=== PATIENT | female | born 1960 | race Caucasian/White ===

== ENCOUNTER → 2018-08-14 | Day surgery (SDC) | payer BC ==
[~2018-08-14] MED LIST: ASPIR 8181 MG PO; BIOTIN2500 MCG PO; CALCIUM PO; CO Q10100 MG PO; DICYCLOMINE HCL20 MG PO; EPHEDRINE SULFATE INJ 50 MG/10 ML SYR ONE; FENTANYL CITRATE/PF 100MCG/2 ML INJ ONE; FISH OIL PO; HYOSCYAMINE SULFATE 0.5 MG/ML INJ ONE; LISINOPRIL-HCT1 EAC2 PO; LISINOPRIL10 MG PO; MELOXICAM7.5 MG PO; METOPROLOL TART25 MG PO; MIDAZOLAM HCL 2 MG/2 ML VIAL ONE; MULTIVITAMINS1 EAC7 PO; NEXIUM40 MG PO; PHENYLEPHRINE HCL 1% 10 MG/ML VIAL ONE; PROPOFOL IV EMULSION 10 MG/ML 50 ML VIAL ONE; SINGULAIR10 MG PO; VIT D3 PO; VITAMIN B-12 PO; VITAMIN C PO
[2018-08-14 11:30] VITALS: BP 127/70
--- NOTE | 2018-08-14 12:00 | Operative Report ---
DATE OF PROCEDURE: August 14, 2018 REFERRING PHYSICIAN: Dr. Mauro Espinoza PROCEDURE PERFORMED: Colonoscopy and polypectomy. INDICATIONS FOR COLONOSCOPY: Colorectal cancer screening. MEDICATION: Patient was done under MAC. Please see anesthesiologist's note. PROCEDURE: With the patient in the left lateral decubitus position, the flexible fiberoptic Olympus colonoscope was inserted into the rectum with ease and advanced all the way to the cecum. It was then withdrawn slowly. Mucosa overlying the cecum, ascending colon, and transverse colon appeared to be within normal limits. Three polyps were hot biopsied from the descending colon. Diverticular disease was noted in the sigmoid colon. Three polyps were hot biopsied from the sigmoid colon. Two polyps were hot biopsied from the rectum. Scope was then retroflexed into the distal rectum, and small internal hemorrhoids were noted, none of which was actively bleeding. The scope was then straightened out. It was subsequently withdrawn. Patient tolerated the procedure well. IMPRESSION 1. Descending colon polyps times 3, hot biopsied. 2. Diverticulosis. 3. Sigmoid colon polyps times 3, hot biopsied. 4. Rectal polyps times 2, hot biopsied. 5. Internal hemorrhoids, none actively bleeding. 6. A total of 8 polyps were removed. PLAN: Follow up histology. Initiate high-fiber, low-fat diet. Initiate high-fiber supplement. Patient will need a followup colonoscopy in 3 years. Job#: [id number] cc:MAURO ESPINOZA DO
--- OUTSIDE RECORDS SUMMARY | 2018-08-25 11:07 | XMS REPORT | Clinical Summary ---
Author Author [facility] Organization [facility] Address Unknown Phone Unavailable Care Team Providers Care Radiochemical Technician Name Role Phone Sunny Rolle MD PCP Allergies Active Allergy Reactions Severity Noted Date Comments Codeine Itching Medium 01/29/2016 Current Medications Prescription Sig. Disp. Refills Start End Date Status Date esomeprazole (NexIUM) 40 Take 40 mg by mouth Active MG capsule daily. montelukast (SINGULAIR) Take 10 mg by mouth Active 10 mg tablet daily. sucralfate (CARAFATE) 1 Take 1 g by mouth daily. Active gram tablet MULTIVITAMIN (MULTI-DAY Take 1 tablet by mouth Active ORAL) daily. aspirin 81 mg chewable Chew 81 mg daily. Active tablet DOCOSAHEXANOIC ACID/EPA Take 1,200 mg by mouth Active (FISH OIL ORAL) daily. CYANOCOBALAMIN, VITAMIN Take 1 tablet by mouth Active B-12, (VITAMIN B-12 ORAL) daily. metoprolol tartrate Take 25 mg by mouth 2 Active (LOPRESSOR) 25 mg tablet (two) times a day. dicyclomine (BENTYL) 20 Take 20 mg by mouth 3 Active mg tablet (three) times a day as needed (Abdominal cramping). ascorbic acid, vitamin C, Take 1,000 mg by mouth Active (vitamin C) 1000 MG daily. tablet ubidecarenone (CO Q-10 Take 1 tablet by mouth Active ORAL) daily. cholecalciferol, vitamin Take 500 Int'l Units by Active D3, (VITAMIN D3 ORAL) mouth daily. atorvastatin (LIPITOR) 20 Take 1 tablet (20 mg 30 tablet 11 03/25/20 03/25/20 Active MG tablet total) by mouth nightly. 18 19 Default OP ins lisinopril Take 1 tablet (40 mg 30 tablet 0 03/25/20 Active (PRINIVIL,ZESTRIL) 40 mg total) by mouth daily. 18 tablet aspirin-calcium carbonate Take by mouth. Active 81 mg-300 mg calcium(777 mg) tablet methylPREDNISolone follow package directions 21 tablet 0 07/30/20 09/08/20 Active (MEDROL DOSEPAK) 4 mg 18 18 tablet meloxicam (MOBIC) 15 mg Take 1 tablet (15 mg 90 tablet 0 07/30/20 12/09/19 Active tablet total) by mouth daily for 18 19 132 days. lisinopril-hydrochlorothi Take 1 tablet by mouth. 08/18/20 Discontin azide 17 ued (PRINZIDE,ZESTORETIC) 20-12.5 mg per tablet metoprolol succinate XL Take 25 mg by mouth 2 08/18/20 Discontin (TOPROL-XL) 25 mg 24 hr (two) times a day. 17 ued tablet lisinopril Take 5 mg by mouth daily. 03/25/20 Discontin (PRINIVIL,ZESTRIL) 5 mg 18 ued tablet traMADol (ULTRAM) 50 mg Take 50 mg by mouth daily 08/19/20 Discontin tablet as needed for moderate 17 ued pain. ASCORBATE CALCIUM Take 1 tablet by mouth 03/24/20 Discontin (VITAMIN C ORAL) daily. 18 ued lifitegrast (XIIDRA) 5 % Administer 1 drop to both 03/24/20 Discontin dropperette eyes daily. 18 ued tamsulosin (FLOMAX) 0.4 Take 0.4 mg by mouth 08/15/20 08/18/20 Discontin mg capsule,extended daily. For 7 days 17 17 ued release 24hr nitrofurantoin, Take 100 mg by mouth 2 03/24/20 Discontin macrocrystal-monohydrate, (two) times a day. 18 ued (MACROBID) 100 MG capsule traMADol (ULTRAM) 50 mg Take 1 tablet (50 mg 45 tablet 0 08/19/20 09/03/20 tablet total) by mouth every 8 17 17 (eight) hours as needed for moderate pain for up to 15 days. traMADol (ULTRAM) 50 mg Take 1 tablet (50 mg 10 tablet 0 01/02/20 01/05/20 tablet total) by mouth every 6 18 18 (six) hours as needed for moderate pain for up to 10 doses. cinnamon bark 500 mg Take 500 mg by mouth 03/25/20 Discontin capsule daily. 18 ued ondansetron ODT Take 1 tablet (4 mg 14 tablet 0 03/25/20 04/24/20 (ZOFRAN-ODT) 4 MG total) by mouth every 8 18 18 disintegrating tablet (eight) hours as needed for nausea or vomiting for up to 30 days. 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 03/26/2018 Telephone Orthopedic Surgery Samra Kaur MA 03/25/2018 Procedure Pass Procedural Cardiology 03/25/2018 Surgery Procedural Cardiology Jaydon Alfaro MD Cv left heart cath w lv gram cors [01234 (CPT)] 03/24/2018 Emergency General Internal Medicine Devang Lincoln III, Chest pain, rule out - MD acute myocardial 03/25/2018 Nura Rosas MD infarction (Primary Dx) 01/28/2018 Office Visit Orthopedic Surgery Michael Sandoval Dislocation of right hip, MD Ethan initial encounter (Primary Dx); Dislocation of hip joint prosthesis, initial encounter 01/22/2018 Orders Only Orthopedic Surgery Samra Kaur MA 01/02/2018 Emergency Emergency Medicine Mane Schmidt Hip dislocation, right, MD Coleen initial encounter (Primary Dx) 08/27/2017 Office Visit Orthopedic Surgery Petey Vergara MD 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 (Primary Dx) 08/19/2017 Telephone Orthopedic Surgery Leyla Ibrahim 08/18/2017 [facility] General Internal Medicine Thao Hernandez MD Hip dislocation, right, - Encounter Hans Penn MD initial encounter 08/19/2017 (Primary Dx) 08/18/2017 Anesthesia General Surgery 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, 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 08/18/2017 Procedure Pass General Surgery 08/18/2017 Surgery General Surgery Hans Penn MD Closed Treatment, Dislocation, Hip after 08/13/2017 Immunizations Name Dates Previously Given Next Due FLUCELVAX QUAD PF (0.5mL 08/19/2017 syringe) Pneumococcal Conjugate 08/19/2017 13-Valent Family History Medical History Relation Name Comments Heart disease Father Kidney disease Father Diabetes Maternal Coty Grandmother Ajay Cancer Mother Daphney Esquivel pancreatic cancer at age 39 Relation Name Status Comments Father Maternal Grandmother Coty Moss Mother Daphney Esquivel Social History Tobacco Use Types Packs/Day Years Used Date Current Every Day Smoker Cigarettes 0.5 4 Smokeless Tobacco: Never Used Tobacco Cessation: Counseling Given: No Alcohol Use Drinks/Week oz/Week Comments Yes occasional Sex Assigned at Date Recorded Not on file Last Filed Vital Signs Vital Sign Reading Time Taken Blood Pressure 169/90 03/25/2018 1:45 PM CDT Pulse 69 03/25/2018 1:45 PM CDT Temperature 36.2 C (97.2 F) 03/25/2018 12:43 PM CDT Respiratory Rate 18 03/25/2018 1:45 PM CDT Oxygen Saturation 96% 03/25/2018 1:45 PM CDT Inhaled Oxygen - - Concentration Weight 74.8 kg (165 lb) 07/30/2018 1:21 PM CDT Height 157.5 cm (5' 2") 07/30/2018 1:21 PM CDT Body Mass Index 30.18 07/30/2018 1:21 PM CDT Plan of Treatment Health Maintenance Due Date Last Done Comments DIABETIC FOOT EXAM 1970 DIABETIC RETINAL EYE EXAM 1970 CERVICAL CANCER SCREENING 1981 BREAST CANCER SCREENING 2010 COLON CANCER SCREENING 2010 SHINGRIX VACCINE (#1) 2010 INFLUENZA VACCINE 06/10/2018 08/19/2017 Procedures Procedure Name Priority Date/Time Associated Diagnosis Comments XR LUMBAR SPINE COMPLETE Routine 07/30/2018 Pain, radicular, lumbar Results for this 4+ VW 1:52 PM CDT procedure are in the results section. XR TIBIA FIBULA 2 VW LEFT Routine 07/30/2018 Left leg pain Results for this 1:52 PM CDT procedure are in the results section. CV LEFT HEART CATH LV Routine 03/25/2018 Results for this GRAM WITH CORS 10:31 AM CDT procedure are in the results section. ZZESTIMATED GFR Routine 03/25/2018 Results for this 5:05 AM CDT procedure are in the results section. MAGNESIUM LEVEL Routine 03/25/2018 Results for this 5:05 AM CDT procedure are in the results section. BASIC METABOLIC PANEL Routine 03/25/2018 Results for this 5:05 AM CDT procedure are in the results section. HC COMPLETE BLD COUNT Routine 03/25/2018 Results for this W/AUTO DIFF 5:05 AM CDT procedure are in the results section. TROPONIN Timed 03/24/2018 Results for this 9:01 PM CDT procedure are in the results section. ECHOCARDIOGRAM 2D Routine 03/24/2018 Results for this COMPLETE W MMODE SPECTRAL 6:41 PM CDT procedure are in the COLOR DOPPLER (17413) results section. TROPONIN Routine 03/24/2018 Results for this 6:05 PM CDT procedure are in the results section. TROPONIN Routine 03/24/2018 Results for this 5:00 PM CDT procedure are in the results section. T4, FREE Routine 03/24/2018 Results for this 5:00 PM CDT procedure are in the results section. THYROID STIMULATING Routine 03/24/2018 Results for this HORMONE 5:00 PM CDT procedure are in the results section. HEMOGLOBIN A1C Routine 03/24/2018 Results for this 5:00 PM CDT procedure are in the results section. LIPID PANEL Routine 03/24/2018 Results for this 5:00 PM CDT procedure are in the results section. D-DIMER Routine 03/24/2018 Results for this 5:00 PM CDT procedure are in the results section. XR CHEST 2 VW STAT 03/24/2018 Results for this 2:28 PM CDT procedure are in the results section. ECG ED PRELIMINARY Routine 03/24/2018 Results for this INTERPRETATION 2:03 PM CDT procedure are in the results section. ZZESTIMATED GFR STAT 03/24/2018 Results for this 2:00 PM CDT procedure are in the results section. LIPASE LEVEL STAT 03/24/2018 Results for this 2:00 PM CDT procedure are in the results section. B NATRIURETIC PEPTIDE STAT 03/24/2018 Results for this 2:00 PM CDT procedure are in the results section. TROPONIN STAT 03/24/2018 Results for this 2:00 PM CDT procedure are in the results section. CREATINE KINASE, TOTAL STAT 03/24/2018 Results for this (CPK) 2:00 PM CDT procedure are in the results section. COMPREHENSIVE METABOLIC STAT 03/24/2018 Results for this PANEL 2:00 PM CDT procedure are in the results section. PARTIAL THROMBOPLASTIN STAT 03/24/2018 Results for this TIME (PTT) 2:00 PM CDT procedure are in the results section. PROTHROMBIN TIME WITH INR STAT 03/24/2018 Results for this 2:00 PM CDT procedure are in the results section. HC COMPLETE BLD COUNT STAT 03/24/2018 Results for this W/AUTO DIFF 2:00 PM CDT procedure are in the results section. ECG 12-LEAD STAT 03/24/2018 Results for this 1:36 PM CDT procedure are in the results section. ORTHOPEDIC INJURY Routine 01/02/2018 Hip dislocation, right, Results for this TREATMENT 6:59 PM AIRLINE RESERVATIONIST initial encounter procedure are in the results section. XR PELVIS 1 OR 2 VW STAT 01/02/2018 Results for this 5:54 PM AIRLINE RESERVATIONIST procedure are in the results section. XR HIP 2-3 VIEWS RIGHT STAT 01/02/2018 Results for this 2:26 PM AIRLINE RESERVATIONIST procedure are in the results section. XR KNEE 1 OR 2 VW RIGHT STAT 01/02/2018 Results for this 2:25 PM AIRLINE RESERVATIONIST procedure are in the results section. ECG 12-LEAD STAT 01/02/2018 Results for this 1:49 PM AIRLINE RESERVATIONIST procedure are in the results section. ZZESTIMATED GFR STAT 01/02/2018 Results for this 1:45 PM AIRLINE RESERVATIONIST procedure are in the results section. PARTIAL THROMBOPLASTIN STAT 01/02/2018 Results for this TIME (PTT) 1:45 PM AIRLINE RESERVATIONIST procedure are in the results section. PROTHROMBIN TIME WITH INR STAT 01/02/2018 Results for this 1:45 PM AIRLINE RESERVATIONIST procedure are in the results section. COMPREHENSIVE METABOLIC STAT 01/02/2018 Results for this PANEL 1:45 PM AIRLINE RESERVATIONIST procedure are in the results section. HC COMPLETE BLD COUNT STAT 01/02/2018 Results for this W/AUTO DIFF 1:45 PM AIRLINE RESERVATIONIST procedure are in the results section. SC MODERATE SEDATJ SAME Routine 01/02/2018 Results for this PHYS/QHP 5/>YRS INIT 30 1:37 PM AIRLINE RESERVATIONIST procedure are in the MIN results section. XR PELVIS 1 OR 2 VW Routine 08/27/2017 S/P closed reduction of Results for this 10:29 AM CDT dislocated total hip procedure are in the prosthesis results section. SC MODERATE SEDATJ SAME Routine 08/19/2017 Results for this PHYS/QHP 5/>YRS INIT 30 7:41 PM CDT procedure are in the MIN results section. POC GLUCOSE Routine 08/18/2017 Results for this 5:59 PM CDT procedure are in the results section. OR FL > 1 HOUR Routine 08/18/2017 Results for this 5:58 PM CDT procedure are in the results section. ECG 12-LEAD STAT 08/18/2017 Results for this 4:57 PM CDT procedure are in the results section. POC GLUCOSE Routine 08/18/2017 Results for this 4:47 PM CDT procedure are in the results section. ZZESTIMATED GFR STAT 08/18/2017 Results for this 4:38 PM CDT procedure are in the results section. PROTHROMBIN TIME WITH INR STAT 08/18/2017 Results for this 4:38 PM CDT procedure are in the results section. PARTIAL THROMBOPLASTIN STAT 08/18/2017 Results for this TIME (PTT) 4:38 PM CDT procedure are in the results section. TYPE AND SCREEN STAT 08/18/2017 Results for this 4:38 PM CDT procedure are in the results section. BASIC METABOLIC PANEL STAT 08/18/2017 Results for this 4:38 PM CDT procedure are in the results section. HC COMPLETE BLD COUNT STAT 08/18/2017 Results for this W/AUTO DIFF 4:38 PM CDT procedure are in the results section. ORTHOPEDIC INJURY Routine 08/18/2017 Results for this TREATMENT 12:17 PM CDT procedure are in the results section. SC MODERATE SEDATJ SAME Routine 08/18/2017 Results for this PHYS/QHP 5/>YRS INIT 30 12:16 PM CDT procedure are in the MIN results section. XR HIP 2-3 VIEWS RIGHT STAT 08/18/2017 Results for this 9:30 AM CDT procedure are in the results section. after 08/13/2017 Results * XR Lumbar Spine Complete 4+ Vw (07/30/2018 1:52 PM) Narrative Performed At [facility] 5 view l-spine reveals diffuse mild-moderate age related degenerative changes, most notably L5-S1 Performing Organization Address City/State/Zipcode Phone Number [employer] [address] [place] [address] * XR Tibia Fibula 2 Vw Left (07/30/2018 1:52 PM) Narrative Performed At [facility] 2 view tibia reveals no evidence of fracture or dislocation Performing Organization Address [facility] Phone Number [facility] [address] [place] [address] * Cv calibration laboratory technician procedure (03/25/2018 10:31 AM) Narrative Performed At [facility] Normal coronaries angiographically Normal Left ventricular end diastolic Pressures Recommend stop smoking, life style and dietary changes Performing Organization Address [facility] Phone Number [facility] [address] [place] [address] * Estimated GFR (03/25/2018 5:05 AM) Only the most recent of 4 results within the time period is included. GFR Non Af Amer >90 mL/min/1.73 m2 [facility] DEPARTMENT OF PATHOLOGY AND GENOMIC MEDICINE GFR Af Amer >90 mL/min/1.73 m2 [facility] DEPARTMENT OF Comment: PATHOLOGY AND Chronic kidney disease: <60 GENOMIC MEDICINE mL/min/1.73m2 Kidney failure: <15 mL/min/1.73m2 The estimated GFR is calculated from the IDMS-traceable Modification of Diet in Renal Disease Equation. The accuracy of the calculation is poor when the creatinine is normal. Calculated values >90 mL/min/1.73m2 are not reported. This equation has not been validated in children (<18 years), women, the elderly (>70 years), or ethnic groups other than Caucasians and Americans. Specimen Plasma specimen Performing Organization Address [facility] Phone Number [address] [address] PATHOLOGY AND GENOMIC MEDICINE * CBC with platelet and differential (03/25/2018 5:05 AM) Only the most recent of 4 results within the time period is included. WBC 5.1 4.5 - 11.0 k/uL [facility] DEPARTMENT OF PATHOLOGY AND GENOMIC MEDICINE RBC 4.39 4.20 - 5.50 m/uL [facility] DEPARTMENT OF PATHOLOGY AND GENOMIC MEDICINE HGB 13.2 12.0 - 16.0 g/dL [facility] DEPARTMENT OF PATHOLOGY AND GENOMIC MEDICINE HCT 39.4 37.0 - 47.0 % [facility] DEPARTMENT OF PATHOLOGY AND GENOMIC MEDICINE MCV 89.7 82.0 - 100.0 fL [facility] DEPARTMENT OF PATHOLOGY AND GENOMIC MEDICINE MCH 30.1 27.0 - 34.0 pg [facility] DEPARTMENT OF PATHOLOGY AND GENOMIC MEDICINE MCHC 33.5 31.0 - 37.0 g/dL [facility] DEPARTMENT OF PATHOLOGY AND GENOMIC MEDICINE RDW - SD 42.6 37.0 - 55.0 fL [facility] DEPARTMENT OF PATHOLOGY AND GENOMIC MEDICINE MPV 9.8 6.9 - 11.0 fL [facility] DEPARTMENT OF PATHOLOGY AND GENOMIC MEDICINE Platelet count 171 150 - 400 K/uL [facility] DEPARTMENT OF PATHOLOGY AND GENOMIC MEDICINE Nucleated RBC 0.00 /100 WBC [facility] DEPARTMENT OF PATHOLOGY AND GENOMIC MEDICINE Neutrophils 52.9 39.0 - 69.0 % [facility] DEPARTMENT OF PATHOLOGY AND GENOMIC MEDICINE Lymphocytes 32.6 25.0 - 45.0 % [facility] DEPARTMENT OF PATHOLOGY AND GENOMIC MEDICINE Monocytes 9.6 0.0 - 10.0 % [facility] DEPARTMENT OF PATHOLOGY AND GENOMIC MEDICINE Eosinophils 3.9 0.0 - 5.0 % [facility] DEPARTMENT OF PATHOLOGY AND GENOMIC MEDICINE Basophils 0.8 0.0 - 1.0 % [facility] OF PATHOLOGY AND GENOMIC MEDICINE Immature granulocytes 0.2 0.0 - 1.0 % [facility] DEPARTMENT OF PATHOLOGY AND GENOMIC MEDICINE Specimen Blood Performing Organization Address City/[facility]/[place] [address] PATHOLOGY [facility] * Magnesium level (03/25/2018 5:05 AM) Magnesium 1.9 1.6 - 2.6 mg/dL [facility] DEPARTMENT OF PATHOLOGY AND GENOMIC MEDICINE Specimen Plasma specimen Performing Organization Address City/[facility]/Zipcode Phone Number [address] * Basic metabolic panel (03/25/2018 5:05 AM) Only the most recent of 2 results within the time period is included. Sodium 142 135 - 148 mEq/L [facility] DEPARTMENT OF PATHOLOGY AND GENOMIC MEDICINE Potassium 3.8 3.5 - 5.0 mEq/L [facility] DEPARTMENT OF PATHOLOGY AND GENOMIC MEDICINE Chloride 104 98 - 112 mEq/L [facility] DEPARTMENT OF PATHOLOGY AND GENOMIC MEDICINE CO2 23 (L) 24 - 31 mEq/L [facility] DEPARTMENT OF PATHOLOGY AND GENOMIC MEDICINE Anion gap 15@ANIO 7 - 15 mEq/L [facility] DEPARTMENT OF PATHOLOGY AND GENOMIC MEDICINE BUN 13 6 - 20 mg/dL [facility] DEPARTMENT OF PATHOLOGY AND GENOMIC MEDICINE Creatinine 0.6 0.5 - 0.9 mg/dL [facility] DEPARTMENT OF PATHOLOGY AND GENOMIC MEDICINE Glucose 108 (H) 65 - 99 mg/dL [facility] DEPARTMENT OF PATHOLOGY AND GENOMIC MEDICINE Calcium 8.8 8.3 - 10.2 mg/dL [facility] DEPARTMENT OF PATHOLOGY AND GENOMIC MEDICINE Specimen Plasma specimen Performing Organization Address City/[facility]/[place] [address] PATHOLOGY AND [employer] MEDICINE * Troponin (03/24/2018 9:01 PM) Only the most recent of 4 results within the time period is included. Troponin <0.30 0.00 - 0.30 ng/mL [facility] DEPARTMENT OF Comment: PATHOLOGY AND 0.11 - 1.49 GENOMIC MEDICINE ng/mlMay indicate increased risk of acute coronary syndrome. >=1.5 ng/ml Consistent with acute myocardial infarction. The diagnostic value of a single normal or non-diagnostic result is questionable.Serial samples at 2-6 hour intervals are required to rule out acute myocardial injury. Specimen Plasma specimen Performing Organization Address City/[facility] Phone Number [facility] [phone] [place] [address] PATHOLOGY AND [employer] * Echocardiogram complete w contrast and 3D if needed (03/24/2018 6:41 PM) Ao Root Diameter 3.02 cm [facility] AoV Area, Vmax 3.10 cm2 [facility] AoV Area, VTI 3.05 cm2 [facility] AoV Mean PG 3.99 mmHg [facility] AoV Peak PG 8.32 mmHg [facility] AoV Vmax 1.44 m/s [facility] AoV VTI 0.28 m [facility] BSA Amaro 0.00 m2 [facility] BSA 0.00 m2 [facility] IVS,d 0.77 0.6 - 1.2 cm [facility] IVS/LVPW,2D 0.62 [facility] Left Atrium Dimension 3.08 cm [facility] Anterior LV,d 5.09 cm [facility] LV EF,2D 84.70 % [facility] LV,s 2.72 cm [facility] LVOT area 3.20 cm2 [facility] LVOT Diam,S 2.02 cm [facility] LVOT Vmax 1.40 m/s [facility] LVOT VTI 0.27 m [facility] LVPWD,d 1.24 cm [facility] PV Pk Grad 4.44 mmHg [facility] PV VMAX 1.05 m/s [facility] RVSP (TR) 21.70 mmHg [facility] TR Vpeak 1.71 mm/s [facility] MV E A ratio 0.99 mmHg [facility] TR pk grad 11.70 mmHg [facility] E wave decelartion time 210.98 msec [facility] MV Peak A Bradley 0.91 m/s [facility] MV valve area p 1/2 3.60 cm2 [facility] method MV Peak E Bradley 0.89 m/s [facility] MV stenosis pressure 1/2 61.18 ms [facility] time AV LVOT peak gradient 7.87 mmHg [facility] Ascending aorta 3.31 cm [facility] RVSP 21.70 mmHg [facility] Ao Root Diameter 3.02 cm [facility] LV SYS VOL 27.58 ml [facility] LV HIDALGO VOL 123.28 ml [facility] LV SV Teich 2D 95.71 ml [facility] LV Vol s Teich PSAX 27.58 ml [facility] BSA Haycock 0.00 m2 [facility] AoV Vmn 0.93 [facility] LV FS Teich 2D 46.52 [facility] MV AE ratio 1.01 [facility] LA Ao Ratio Mmode 0.94 [facility] LV FS Cube 2D 46.52 [facility] LVOT Vmn 0.90 [facility] Pt Size 0.00 [facility] Pt Wt 0.00 [facility] Ao root annulus 3.40 cm [facility] Aov area Vmn 3.10 cm2 [facility] LVOT mean grad 3.81 mmHg [facility] MAX Pred HR 162.52 [facility] 85 of MPHR 138.14 [facility] Calc MPHR 162.52 bpm [facility] LV SV Cube 2D 111.74 ml [facility] LV vol d cube 2D 131.92 ml [facility] LV vol s cube 2D 20.18 ml [facility] MV Decel slope 4.24 m/s2 [facility] Pred Exer Dur R1 8.18 [facility] Pred METS R1 7.23 [facility] Velocity Ratio (V1/V2) 0.97 m/s [facility] EF 77.63 % [facility] E/A ratio 0.98 [facility] Narrative Performed At [facility] The left ventricle chamber size is normal. Left Ventricular ejection fraction is 60 - 65%. No pericardial effusion Right Ventricle: Normal right ventricular size, wall thickness and global function. No evidence of pulmonary hypertension present. Diastology: Spectral Doppler shows normal pattern of LV diastolic filling. Normal LV filling pressure. No significant Valvular Heart disease Performing Organization Address [facility] Phone Number [facility] [address] [place] [address] * D-dimer (03/24/2018 5:00 PM) D-dimer 0.36 0.00 - 0.40 ug/mL [facility] DEPARTMENT OF Comment: PATHOLOGY AND Units are ug/ml [employer] MEDICINE Equivalent Unit. When combined with low clinical probability, D-dimer results of less than 0.5 ug/ml FEU have a good negativepredictive value in excluding PE or DVT. For D-dimer results greater than 0.5ug/ml FEU further testing is indicated if PE or DVT is suspectedclinically. Elevated D-dimer results have been reported in DVT, PE, and DIC cases and may indicate the presence of a clot. D-dimer results may be elevated due to old age, , inflammatory diseases, trauma, post-operative states, sepsis, and malignancies. Specimen Blood Performing Organization Address [facility] [place] [address] PATHOLOGY AND [employer] MEDICINE * Thyroid stimulating hormone (03/24/2018 5:00 PM) TSH 1.27 0.27 - 4.20 uIU/mL [facility] DEPARTMENT OF PATHOLOGY AND GENOMIC MEDICINE Specimen Plasma specimen Performing Organization Address [facility] [place] [address] PATHOLOGY AND [employer] MEDICINE * T4, free (03/24/2018 5:00 PM) T4, free 1.0 0.9 - 1.7 ng/dL [facility] DEPARTMENT OF PATHOLOGY AND GENOMIC MEDICINE Specimen Plasma specimen Performing Organization Address [facility] [place] [address] PATHOLOGY AND [employer] MEDICINE * Hemoglobin A1c (03/24/2018 5:00 PM) Hemoglobin A1C 5.5 4.0 - 6.0 % [facility] DEPARTMENT OF Comment: PATHOLOGY AND GENOMIC MEDICINE Less than 6% - Goal of therapy for Type II Diabetes Less than 7%-Goal of therapy for Type I Diabetes Less than 8%-Accepta ble control for Type I or Type II Diabetes Greater than 8%-Unacceptabl e control; action indicated. (ADA94) Specimen Blood Performing Organization Address City/State/Zipcode Phone Number [place] [phone] [place] [address] PATHOLOGY AND GENOMIC MEDICINE * Lipid panel (03/24/2018 5:00 PM) Cholesterol 209 (H) 0 - 199 mg/dL [facility] DEPARTMENT OF PATHOLOGY AND GENOMIC MEDICINE Triglycerides 227 (H) 0 - 149 mg/dL [facility] DEPARTMENT OF PATHOLOGY AND GENOMIC MEDICINE HDL cholesterol 51 40 - 99,999 mg/dL [facility] DEPARTMENT OF PATHOLOGY AND GENOMIC MEDICINE LDL cholesterol 115 (H) 0 - 99 mg/dL [facility] DEPARTMENT OF PATHOLOGY AND GENOMIC MEDICINE Lipid panel See below [facility] DEPARTMENT OF interpretation Comment: PATHOLOGY AND Total Cholesterol GENOMIC MEDICINE (mg/dL) <200 Desirable 200-239Borderline -high >=240High Triglycerides (mg/dL) <150 Normal 150-199Borderline -high 200-499High >=500Very high HDL Cholesterol (mg/dL) <40Low (male) <50Low (female) LDL Cholesterol (mg/dL) <100 Optimal 100-129Near or above optimal 130-159Borderline -high 160-189High >=190Very high Risk Catergories that modify LDL goals. Risk Catergories LDL goal (mg/dL) CHD and CHD risk equivalent<100 (10-year risk >20%) Multiple (2+) risk factors <130 (10-year risk=<20%) 0-1 risk factors <160 (<10-year risk) Defining levels of lipids in metabolic syndrome Triglycerides >=150 mg/dL HDL Cholesterol Men <40 mg/dL Women <50 mg/dL Non-HDL cholesterol is a second target for therapy in persons with high triglycerides (>=200 mg/dL) Specimen Plasma specimen Performing Organization Address [facility] [place] [address] PATHOLOGY AND GENOMIC MEDICINE * XR Chest 2 Vw (03/24/2018 2:28 PM) Narrative Performed At EXAMINATION:XR CHEST 2 VW [facility] CLINICAL HISTORY: Chest pain COMPARISON:None IMPRESSION: No active disease in the chest. Lungs are clear. Cardiomediastinal silhouette is within normal limits. No effusion or pneumothorax noted. Visualized osseous structures are intact. [facility]-[id number] Procedure Note Interface, Radiology Results Incoming - 03/24/2018 2:33 PM CDT EXAMINATION: XR CHEST 2 VW CLINICAL HISTORY: Chest pain COMPARISON: None IMPRESSION: No active disease in the chest. Lungs are clear. Cardiomediastinal silhouette is within normal limits. No effusion or pneumothorax noted. Visualized osseous structures are intact. [facility]-[id number] Performing Organization Address [facility] Phone Number [facility] [address] [place] [address] * ECG ED Preliminary Interpretation - NOT AN ORDER (03/24/2018 2:03 PM) Narrative Performed At Devang Lincoln III, MD 03/24/2018 11:46 PM ECG ED Preliminary Interpretation - Not an Order Performed by: CAROLE QUINN Authorized by: CAROLE QUINN ECG reviewed by ED Physician in the absence of a veterinarian epidemiologist: yes Previous ECG: Previous ECG:Unavailable Interpretation: Interpretation: normal Rate: ECG rate:54 ECG rate assessment: bradycardic Rhythm: Rhythm: sinus bradycardia ST segments: ST segments:Normal * Partial thromboplastin time, activated (03/24/2018 2:00 PM) Only the most recent of 3 results within the time period is included. PTT 22.9 (L) 23.0 - 36.0 sec [facility] DEPARTMENT OF Comment: PATHOLOGY AND PTT therapeutic range for GENOMIC MEDICINE unfractionated heparin is 61.0-112.0 seconds which corresponds to Anti-Xa 0.3-0.7 U/ml. Specimen Blood Performing Organization Address [facility] [place] [address] PATHOLOGY AND GENOMIC MEDICINE * Prothrombin time with INR (03/24/2018 2:00 PM) Only the most recent of 3 results within the time period is included. Prothrombin time 12.8 12.0 - 15.0 sec [facility] DEPARTMENT OF PATHOLOGY AND GENOMIC MEDICINE INR 1.0 [facility] DEPARTMENT OF Comment: PATHOLOGY AND The International Normalized GENOMIC MEDICINE Ratio (INR) is a therapeutic monitoring tool for patients who are stable on oral anticoagulant therapy. An INR of 2.0-3.0 is suggested for deep vein thrombosis/pulmonary embolism. Specimen Blood Performing Organization Address City/[facility] [place] [address] PATHOLOGY AND [facility] * B natriuretic peptide (03/24/2018 2:00 PM) BNP 102 (H) 0 - 100 pg/mL [facility] DEPARTMENT OF PATHOLOGY AND [employer] MEDICINE Specimen Blood Performing Organization Address [facility] [place] [address] PATHOLOGY AND [facility] * Lipase level (03/24/2018 2:00 PM) Lipase 46 13 - 60 U/L [facility] DEPARTMENT OF PATHOLOGY AND [employer] MEDICINE Specimen Plasma specimen Performing Organization Address [facility] [place] [address] PATHOLOGY AND [facility] * Creatine kinase, total (CPK) (03/24/2018 2:00 PM) Creatine kinase 64 26 - 192 U/L [facility] DEPARTMENT OF PATHOLOGY AND [employer] MEDICINE Specimen Plasma specimen Performing Organization Address [facility] [place] [address] PATHOLOGY AND [facility] * Comprehensive metabolic panel (03/24/2018 2:00 PM) Only the most recent of 2 results within the time period is included. Sodium 144 135 - 148 mEq/L [facility] DEPARTMENT OF PATHOLOGY AND GENOMIC MEDICINE Potassium 4.4 3.5 - 5.0 mEq/L [facility] DEPARTMENT OF PATHOLOGY AND GENOMIC MEDICINE Chloride 102 98 - 112 mEq/L [facility] DEPARTMENT OF PATHOLOGY AND GENOMIC MEDICINE CO2 28 24 - 31 mEq/L [facility] DEPARTMENT OF PATHOLOGY AND GENOMIC MEDICINE Anion gap 14@ANIO 7 - 15 mEq/L [facility] DEPARTMENT OF PATHOLOGY AND GENOMIC MEDICINE BUN 13 6 - 20 mg/dL [facility] DEPARTMENT OF PATHOLOGY AND GENOMIC MEDICINE Creatinine 0.7 0.5 - 0.9 mg/dL [facility] DEPARTMENT OF PATHOLOGY AND GENOMIC MEDICINE Glucose 130 (H) 65 - 99 mg/dL [facility] DEPARTMENT OF PATHOLOGY AND GENOMIC MEDICINE Calcium 9.8 8.3 - 10.2 mg/dL [facility] DEPARTMENT OF PATHOLOGY AND GENOMIC MEDICINE Protein 7.3 6.3 - 8.3 g/dL [facility] DEPARTMENT OF PATHOLOGY AND GENOMIC MEDICINE Albumin 4.7 3.5 - 5.0 g/dL [facility] DEPARTMENT OF PATHOLOGY AND GENOMIC MEDICINE A/G ratio 1.8 0.7 - 3.8 [facility] DEPARTMENT OF PATHOLOGY AND GENOMIC MEDICINE Alkaline phosphatase 61 35 - 104 U/L [facility] DEPARTMENT OF PATHOLOGY AND GENOMIC MEDICINE AST 25 10 - 35 U/L [facility] DEPARTMENT OF PATHOLOGY AND GENOMIC MEDICINE ALT 32 5 - 50 U/L [facility] DEPARTMENT OF PATHOLOGY AND GENOMIC MEDICINE Total bilirubin 0.8 0.2 - 1.2 mg/dL [facility] DEPARTMENT OF PATHOLOGY AND GENOMIC MEDICINE Specimen Plasma specimen Performing Organization Address City/[facility] Phone Number [address] [address] PATHOLOGY AND GENOMIC MEDICINE * ECG 12 lead (03/24/2018 1:36 PM) Only the most recent of 3 results within the time period is included. Ventricular rate 54 [facility] Atrial rate 54 [facility] SC interval 174 [facility] QRSD interval 128 [facility] QT interval 474 [facility] QTC interval 449 [facility] P axis 1 53 [facility] QRS axis 1 -72 [facility] T wave axis 0 [facility] EKG impression Sinus bradycardia-Right bundle [facility] branch block-Left anterior fascicular block-^^^ Bifascicular block ^^^-Septal infarct , age undetermined-In automated comparison with ECG of 02-JAN-2018 13:49,-Septal infarct is now present-T wave inversion now evident in Inferior leads-T wave amplitude has increased in Lateral leads- Performing Organization Address City/[facility] Phone Number [facility] [address] [place] [address] * ORTHOPEDIC INJURY TREATMENT (01/02/2018 6:59 PM) Narrative Performed At Subhash Granda MD 01/03/20181:00 AM Orthopedic Injury Treatment Performed by: SUBHASH GRANDA Authorized by: SUBHASH GRANDA Consent: Consent obtained:Verbal Consent given by:Patient Risks discussed:Pain and nerve damage Alternatives discussed:Delayed treatment and observation Injury: Injury location:Hip Hip injury location:R hip Pre-procedure assessment: Neurological function: normal Distal perfusion: normal Range of motion: reduced Sedation: Sedation type:Moderate (conscious) sedation Procedure details: Manipulation performed: yes Skin traction used: yes Skeletal traction used: no Pin inserted: no Reduction successful: yes X-ray confirmed reduction: yes Post-procedure assessment: Neurological function: normal Distal perfusion: normal Range of motion: normal Patient tolerance of procedure:Tolerated well, no immediate complications * XR Pelvis 1 Or 2 Vw (01/02/2018 5:54 PM) Only the most recent of 2 results within the time period is included. Narrative Performed At Examination: [facility] CLINICAL HISTORY: post reduction Comparison studies: Pelvis x-ray 08/27/2017 IMPRESSION: There is good alignment of the total right hip arthroplasty. There are lytic changes in the ischium/ilium above the acetabular cup. Stable mild deformity of the right iliac crest. [facility]-[id number] Procedure Note Interface, Radiology Results Incoming - 01/02/2018 6:09 PM AIRLINE RESERVATIONIST Examination: CLINICAL HISTORY: post reduction Comparison studies: Pelvis x-ray 08/27/2017 IMPRESSION: There is good alignment of the total right hip arthroplasty. There are lytic changes in the ischium/ilium above the acetabular cup. Stable mild deformity of the right iliac crest. [facility]-[id number] Performing Organization Address City/State/Zipcode Phone Number [facility] [address] [place] [address] * XR Hip 2-3 View Right (01/02/2018 2:26 PM) Only the most recent of 2 results within the time period is included. Narrative Performed At EXAMINATION:XR HIP 2-3 VIEWS RIGHT [facility] CLINICAL HISTORY:possible right hip dislocation COMPARISON:None available at this time. IMPRESSION: Superior dislocation of the right hip total arthroplasty. No fracture or osteolysis identified. Procedure Note Interface, Radiology Results Incoming - 01/02/2018 2:33 PM AIRLINE RESERVATIONIST EXAMINATION: XR HIP 2-3 VIEWS RIGHT CLINICAL HISTORY: possible right hip dislocation COMPARISON: None available at this time. IMPRESSION: Superior dislocation of the right hip total arthroplasty. No fracture or osteolysis identified. Performing Organization Address [facility]/[employer] Phone Number [facility] [address] [place] [address] * XR Knee 1 Or 2 Vw Right (01/02/2018 2:25 PM) Narrative Performed At Procedure:XR KNEE 1 OR 2 VW RIGHT [facility] REFERRING PHYSICIAN: MANE SCHMIDT HISTORY:right knee pain COMPARISON: None FINDINGS: No evidence of fracture or dislocation is seen. The joint spaces are relatively maintained. No osteolytic or osteoblastic lesion is identify. Regional soft tissue is unremarkable. No radiopaque foreign body is seen. XR KNEE 2 VW RIGHTacquired. IMPRESSION: No radiographic evidence of acute fracture or dislocation of the right knee. [id number] Procedure Note Interface, Radiology Results Incoming - 01/02/2018 2:33 PM AIRLINE RESERVATIONIST Procedure:XR KNEE 1 OR 2 VW RIGHT REFERRING PHYSICIAN: MANE SCHMIDT HISTORY: right knee pain COMPARISON: None FINDINGS: No evidence of fracture or dislocation is seen. The joint spaces are relatively maintained. No osteolytic or osteoblastic lesion is identify. Regional soft tissue is unremarkable. No radiopaque foreign body is seen. XR KNEE 2 VW RIGHT acquired. IMPRESSION: No radiographic evidence of acute fracture or dislocation of the right knee. [id number] Performing Organization Address [facility] Phone Number [facility] [address] [place] [address] * ED MODERATE PROCEDURAL SEDATION (01/02/2018 1:37 PM) Narrative Performed At Mane Schmidt MD 01/02/2018 11:21 PM Procedural Sedation (Moderate/Deep) Performed by: MANE SCHMIDT Authorized by: MANE SCHMIDT Consent: Consent obtained:Verbal Consent given by:Patient and spouse Risks discussed:Inadequate sedation, respiratory compromise necessitating ventilatory assistance and intubation, vomiting, nausea, prolonged sedation necessitating reversal and prolonged hypoxia resulting in organ damage Indications: Sedation purpose:Dislocation reduction Procedure necessitating sedation performed by:Different physician Pre-sedation assessment: Time since last food or drink:11am ASA classification: class 2 - patient with mild systemic disease Neck mobility: normal Mouth openin or more finger widths Thyromental distance:3 finger widths Mallampati score:II - soft palate, uvula, fauces visible Immediate pre-procedure details: Reassessment: Patient reassessed immediately prior to procedure Reviewed: vital signs, relevant labs/tests and NPO status Verified: bag valve mask available, emergency equipment available, intubation equipment available, IV patency confirmed, oxygen available and reversal medications available Procedure details (see MAR for exact dosages): Sedation start time:01/02/2018 5:40 PM Preoxygenation:Nasal cannula Sedation medications:Propofol Sedation level: DEEP sedation Analgesia:Morphine Intra-procedure monitoring:Blood pressure monitoring, continuous capnometry, frequent LOC assessments, frequent vital sign checks, continuous pulse oximetry and bus monitor Intra-procedure events: respiratory depression Intra-procedure management:Airway repositioning, BVM ventilation and supplemental oxygen Reversal agents:None required Sedation end time:01/02/2018 5:46 PM Total sedation time (minutes):6 Post-procedure details: Attendance: Constant attendance by certified staff until patient recovered Recovery: Patient returned to pre-procedure baseline Respiratory status:Unassisted Patient tolerance:Tolerated well, no immediate complications * ED MODERATE PROCEDURAL SEDATION (08/19/2017 7:41 PM) Narrative Performed At Thao Hernandez MD 08/19/20177:41 PM Procedural Sedation (Moderate/Deep) Performed by: THAO HERNANDEZ Authorized by: THAO HERNANDEZ Consent: Consent obtained:Written Consent given by:Patient Risks discussed:Allergic reaction, dysrhythmia, prolonged hypoxia resulting in organ damage, prolonged sedation necessitating reversal, respiratory compromise necessitating ventilatory assistance and intubation, nausea, inadequate sedation and vomiting Indications: Sedation purpose:Dislocation reduction Procedure necessitating sedation performed by:Physician performing sedation Pre-sedation assessment: Time since last food or drink:1700 ASA classification: class 2 - patient with mild systemic disease Neck mobility: normal Mouth openin or more finger widths Mallampati score:I - soft palate, uvula, fauces, pillars visible Immediate pre-procedure details: Reassessment: Patient reassessed immediately prior to procedure Reviewed: vital signs and relevant labs/tests Verified: bag valve mask available, emergency equipment available, intubation equipment available, IV patency confirmed, oxygen available, reversal medications available and suction available Procedure details (see MAR for exact dosages): Preoxygenation:Nasal cannula Sedation medications:Etomidate Sedation level: DEEP sedation Intra-procedure monitoring:Blood pressure monitoring, bus monitor, continuous capnometry, continuous pulse oximetry, frequent LOC assessments and frequent vital sign checks Intra-procedure events: none Reversal agents:None required Post-procedure details: Attendance: Constant attendance by certified staff until patient recovered Recovery: Patient returned to pre-procedure baseline Respiratory status:Unassisted Patient tolerance:Tolerated well, no immediate complications * POC glucose (08/18/2017 5:59 PM) Only the most recent of 2 results within the time period is included. POC glucose 93 65 - 99 mg/dL [facility] DEPARTMENT OF Comment: PATHOLOGY AND Meter ID: [id number] GENOMIC MEDICINE Manager Creative Services: Denny Sanchez Performing Organization Address [facility] [place] [address] PATHOLOGY AND GENOMIC MEDICINE * OR FL > I Hour (08/18/2017 5:58 PM) Narrative Performed At EXAMINATION:OR [place] 1 HOUR [facility] CLINICAL HISTORY:Intraoperative fluoroscopy IMPRESSION: Fluoroscopy was provided. No radiologist present.Please see procedure report for discussion of procedure, findings and fluoroscopic time. [facility]-[id number] Procedure Note Interface, Radiology Results Incoming - 08/18/2017 6:14 PM CDT EXAMINATION: OR FL 1 HOUR CLINICAL HISTORY: Intraoperative fluoroscopy IMPRESSION: Fluoroscopy was provided. No radiologist present. Please see procedure report for discussion of procedure, findings and fluoroscopic time. [facility]-[id number] Performing Organization Address [facility] Phone Number [facility] [address] [place] [address] * Type and screen (08/18/2017 4:38 PM) ABO grouping A [facility] DEPARTMENT OF PATHOLOGY AND GENOMIC MEDICINE Rh type POS [facility] DEPARTMENT OF PATHOLOGY AND GENOMIC MEDICINE Antibody screen (gel) NEG [facility] DEPARTMENT OF PATHOLOGY AND GENOMIC MEDICINE Specimen Blood Performing Organization Address [facility] Phone Number [address] [address] PATHOLOGY AND GENOMIC MEDICINE * ORTHOPEDIC INJURY TREATMENT (08/18/2017 12:17 PM) Narrative Performed At Thao Hernandez MD 08/18/2017 12:17 PM Orthopedic Injury Treatment Performed by: THAO HERNANDEZ Authorized by: THAO HERNANDEZ Consent: Consent obtained:Written Consent given by:Patient Risks discussed:Nerve damage, pain and vascular damage Alternatives discussed:No treatment Injury: Injury location:Hip Hip injury location:R hip Pre-procedure assessment: Neurological function: normal Distal perfusion: normal Range of motion: reduced Sedation: Sedation type:Moderate (conscious) sedation Procedure details: Manipulation performed: yes Post-procedure assessment: Neurological function: normal Distal perfusion: normal Range of motion: unchanged Comments: Unsuccessful reduction of right hip disocation * [facility] MODERATE PROCEDURAL SEDATION (08/18/2017 12:16 PM) Narrative Performed At Thao Hernandez MD 08/18/2017 12:16 PM Procedural Sedation (Moderate/Deep) Performed by: THAO HERNANDEZ Authorized by: THAO HERNANDEZ Consent: Consent obtained:Written Consent given by:Patient Risks discussed:Prolonged hypoxia resulting in organ damage, allergic reaction, dysrhythmia, prolonged sedation necessitating reversal, respiratory compromise necessitating ventilatory assistance and intubation, inadequate sedation, nausea and vomiting Alternatives discussed:Analgesia without sedation Indications: Sedation purpose:Dislocation reduction Procedure necessitating sedation performed by:Physician performing sedation Pre-sedation assessment: ASA classification: class 2 - patient with mild systemic disease Neck mobility: normal Mouth openin or more finger widths Mallampati score:I - soft palate, uvula, fauces, pillars visible Immediate pre-procedure details: Reassessment: Patient reassessed immediately prior to procedure Reviewed: vital signs, relevant labs/tests and NPO status Verified: bag valve mask available, emergency equipment available, intubation equipment available, IV patency confirmed, oxygen available, reversal medications available and suction available Procedure details (see MAR for exact dosages): Preoxygenation:Nonrebreather mask Sedation medications:Etomidate Sedation level: DEEP sedation Intra-procedure monitoring:Blood pressure monitoring, bus monitor, continuous capnometry, continuous pulse oximetry, frequent LOC assessments and frequent vital sign checks Intra-procedure events: none Reversal agents:None required Post-procedure details: Attendance: Constant attendance by certified staff until patient recovered Recovery: Patient returned to pre-procedure baseline Respiratory status:Unassisted Patient tolerance:Tolerated well, no immediate complications after 08/13/2017 Insurance Payer Benefit Subscriber ID Type Phone Address Plan / Group BCBS BCBS xxxxxxxxxxxx PPO CHOICE PPO/ESTIVEN [place] PPO
--- OUTSIDE RECORDS SUMMARY | 2018-08-25 11:07 | XMS REPORT | Summary of Care ---
Author Author SOBIA Real, BEA Organization Unknown Address Unknown Phone Unavailable Care Team Providers Care Game Artist Name Role Phone BEA RAMSAY M.D. Unavailable Unavailable Functional Status Name Dates Details Functional status health issues are not documented Status: Name Dates Details Cognitive status health issues are not documented Status: Problems Name Dates Details Right hip pain (719.45, M25.551) Status: Active Other orthopedic aftercare (V54.89, Z47.89) Status: Active Status post hip replacement, right (V43.64, Z96.641) Status: Active History of hemiarthroplasty of left hip (V43.64, Z96.642) Status: Active Medications Name Dates Details NexIUM 10 MG Oral Packet Active Lisinopril TABS * Refills: 0 Active Singulair 10 MG Oral Tablet * Refills: 0 Active Metoprolol Tartrate 100 MG Oral Tablet * Refills: 0 Active CeleBREX 200 MG Oral Capsule * Refills: 0 Active Sucralfate 1 GM Oral Tablet * Refills: 0 Active Fish Oil OIL * Refills: 0 Active Vitamin D (Cholecalciferol) 400 UNIT Oral Tablet Chewable * Refills: 0 Active Vitamin C CAPS * Refills: 0 Active SM Vitamin B-12 TABS * Refills: 0 Active Biotin Forte TABS * Refills: 0 Active Aspirin 81 MG TABS * Refills: 0 Active Cinnamon Plus Chromium CAPS * Refills: 0 Active Allergies and Adverse Reactions Name Dates Details codeine (Allergy) Status: Active Past Medical History Name Dates Details History of Cancer (199.1, C80.1) Status: Resolved History of Diabetes mellitus, type 2 (250.00, E11.9) Status: Resolved Procedures Procedure Dates Details History of section Completed History of Hip replacement Completed History of Hip surgery Completed History of Shoulder surgery Completed History of Hip replacement partial Completed Immunization Name Dates Details Immunizations not documented Family History Name Dates Details Family history of malignant neoplasm (V16.9, Z80.9) Status: Active Name Dates Details Family history of heart failure (V17.49, Z82.49) Status: Active Social History Name Dates Details - Status: Name Dates Details Former smoker Vital Signs Date Test Result Details [id number] Height 62 in Status: Weight 160 lb Status: Body Mass Index Calculated 29.26 kg/m2 Status: Body Surface Area Calculated 1.74 m2 Status: Results Date Description Value Details [id number] [U] XRAY HIP UNILATERAL MIN 2 VWS RIGHT [id number] XR HIP UNILATERAL MIN 2 VWS RIGHT Images acquired, not reported on this accession number. [id number] [U] XRAY HIP UNILATERAL MIN 2 VWS RIGHT [id number] XR HIP UNILATERAL MIN 2 VWS RIGHT Images acquired, not reported on this accession number. Plan of Care Name Dates Details Planned Observations Planned Goals not documented Interventions Provided Labs/Procedures/Imaging* [U] XRAY HIP UNILATERAL MIN 2 VWS RIGHT [id number]; Done: 29 Apr 2018 * [U] XRAY HIP UNILATERAL MIN 2 VWS RIGHT [id number]; Done: 29 Apr 2018 Plan* 1. Reemphasized posterior hip precautions * 2. PT/pool therapy, hip specific strengthening and stretching exercises * 3. We had a lengthy discussion about the pros and cons of another revision and the available options , which includes face-changing liners or converting to a dual mobility construct. Our recommendation at this point is to follow non-operative measures as above, and consider the operative options, if another dislocatio occurs. Instructions Name Dates Details Instructions not documented Encounters Appointment; BEA RAMSAY M.D. Encounter Diagnosis: Problem not documented On: 29-Apr-2018 13:30
--- OUTSIDE RECORDS SUMMARY | 2018-08-25 11:07 | XMS REPORT | Clinical Summary ---
Author Author 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 Disp. Refills Start End Date Status Date lisinopril-hydrochlorothi Take 1 tablet by mouth Active azide daily. (PRINZIDE,ZESTORETIC) 20-12.5 mg per tablet esomeprazole (NEXIUM) 40 Take 40 mg by mouth Active MG capsule daily. montelukast (SINGULAIR) Take 10 mg by mouth Active 10 mg tablet nightly. sucralfate (CARAFATE) 1 Take 1 g by mouth 4 Active gram tablet (four) times daily. aspirin 81 MG EC tablet Take 81 mg by mouth Active daily. Active Problems Not on file Social History Tobacco Use Types Packs/Day Years Used Date Current Some Day Smoker Alcohol Use Drinks/Week oz/Week Comments Yes Sex Assigned at Date Recorded Not on file Last Filed Vital Signs Not on file Plan of Treatment Not on file Results Not on fileafter 08/13/2017
--- OUTSIDE RECORDS SUMMARY | 2018-08-25 11:07 | XMS REPORT ---
Author Author [facility] Address Unknown Phone Unavailable Care Team Providers Care Customer Assistance Representative Name Role Phone JESUS GOMEZ Unavailable Unavailable Problems This patient has no known problems. Allergies, Adverse Reactions, Alerts This patient has no known allergies or adverse reactions. Medications This patient has no known medications. Results Test Description Test Time Test Comments Text Results Atomic Results Result Comments Stress Test - Treadmill ONLY [place] [address] Patient Name : GEMA BAUGH MR #: [id number] : 1960 Age/Sex: 56/F Adm Physician : JESUS GOMEZ MD Admit Date : 07/28/17 Location : [facility] Room/Bed : [place] [address] REPORT: Cardiology Report DATE OF STUDY: July 29, 2017 CARDIAC NUCLEAR STRESS TEST TECHNICAL DETAILS: This is resting, stress exercise nuclear cardiac stress test. For the resting phase patient given 11millicurie of Myoview and half an hour after the injection he had proper SPECT imaging and processing. For the stress part patient had Doug protocol cardiac stress test which we will outline. At the peak exercise at target heart rate patient had injection of 30.3 millicurie of Myoview with repeat SPECT imaging Processing were done. RESULTS: A. Exercise stress test: The protocol is Doug with 100% Heart rate is 164, 85% is 140 per minute. 1. Patient exercised for a total of 5 minutes. 2. Heart rate increased from 60 per minute to 147 per minute. 3. Blood pressure increased from 99/62 to 137/94. 4. Myoview injection was done at 4 minutes 50 into exercise at heart rate of 145 per minute. 5. No chest pain, only shortness of breath 6. Baseline EKG showed right bundle branch block. With exercise there were minimal ST segment changes. In conclusion, negative exercise stress test. B. Nuclear stress test; 1. Perfusion image. (A) Resting SPECT: There were perfusion abnormalities with decrease uptake in the apex and the inferoapical segments. (B) Stress SPECT: There were perfusion abnormalities with decrease uptake in the apex and the inferoapical segments. In fact, the defect size seems to be smaller in stress images in comparison to the resting images. Of note raw data revealed interference by GI and diaphragm In conclusion, it showed fixed apical and inferior apical defect. 2. Volumes: end-diastolic volume of 54 mL and end systolic volume of 18 mL. Left ventricular ejection fraction of 67%. 3. The left ventricle is normal in size with no segmental wall motion abnormality. IMPRESSION: 1. Fixed apical and inferoapical defect in both resting and stress images. 2. Preserved left ventricular systolic function. 3. Left ventricular ejection fraction of 67%. 4. Good exercise tolerance. 5. In conclusion, low risk nuclear stress study. Limitation of this study are explained and discussed. Job#: [id number] Signature Date Dictated By: JOHN ROBLES MD Transcribed By: STEPHANIE on 07/29/17 <Electronically signed by JOHN ROBLES MD><<Signature on File>>07/29/17 1812 COPY TO: CHEST 2 VIEWS [place] [address] Patient Name: GEMA BAUGH MR #: [id number] : 1960 Age/Sex: 56/F Req #: [id number] Adm Physician: Ordered by: ROMI MATHEWS MD Report #: [id number] Location: ER Room/Bed: Procedure: [id number] DX/CHEST 2 VIEWS Exam Date: 07/28/17 Exam Time: 1230 REPORT STATUS: Signed PROCEDURE: X-RAY CHEST, TWO VIEWS COMPARISON: None. INDICATIONS: CHEST PRESSURE, RACING HEART FINDINGS: Lungs are well-inflated. No focal airspace consolidation, pleural effusion, or pneumothorax. Tortuosity of the thoracic aorta with an otherwise normal cardiomediastinal contour. No acute osseous abnormality.. CONCLUSION: No acute cardiopulmonary abnormality. Dictated by: Shawnee Jauregui M.D. on 07/28/2017 at 13:01 Electronically approved by: Shawnee Jauregui M.D. on 07/28/2017 at 13:01 Dictated By: SHAWNEE JAUREGUI MD 1301 Transcribed By: DEXTER on 07/28/17 1301 COPY TO: ROMI MATHEWS MD
== END | disposition home or self-care (01) ==
LOC: OR 07:28
PROVIDERS: ATTEND Internal Medicine Gastroenterology
DX: Z12.11 Encounter for screening for malignant neoplasm of colon (principal); K63.5 Polyp of colon; K62.1 Rectal polyp; K57.30 Diverticulosis of large intestine without perforation or abscess without bleeding; K21.9 Gastro-esophageal reflux disease without esophagitis; K64.8 Other hemorrhoids; E11.9 Type 2 diabetes mellitus without complications; I10 Essential (primary) hypertension; I45.10 Unspecified right bundle-branch block; Z88.6 Allergy status to analgesic agent; Z01.810 Encounter for preprocedural cardiovascular examination; Z79.82 Long term (current) use of aspirin; Z68.30 Body mass index [BMI] 30.0-30.9, adult; Z85.72 Personal history of non-Hodgkin lymphomas; Z96.641 Presence of right artificial hip joint; Z87.891 Personal history of nicotine dependence; Z80.0 Family history of malignant neoplasm of digestive organs
CPT/HCPCS: 45384; 93005; J1980; J2250; J2370; 45378

== ENCOUNTER → 2018-09-30 | Outpatient (CLI) | payer BC ==
[~2018-09-30] MED LIST changes: -EPHEDRINE SULFATE INJ 50 MG/10 ML SYR ONE; -FENTANYL CITRATE/PF 100MCG/2 ML INJ ONE; -HYOSCYAMINE SULFATE 0.5 MG/ML INJ ONE; -MIDAZOLAM HCL 2 MG/2 ML VIAL ONE; -PHENYLEPHRINE HCL 1% 10 MG/ML VIAL ONE; -PROPOFOL IV EMULSION 10 MG/ML 50 ML VIAL ONE
--- NOTE | 2018-10-06 08:57 | Diagnostic Imaging Report ---
#[id number] - MGSCRBIL #BILATERAL DIGITAL SCREENING MAMMOGRAM WITH CAD: 09/30/2018 CLINICAL: Routine screening. Comparison is made to exam dated: 05/19/2015 mammogram - [facility]. Current study contains 4 films. The tissue of both breasts is heterogeneously dense. This may lower the sensitivity of mammography. Current study was also evaluated with a Computer Aided Detection (CAD) system. There are benign calcifications in the left breast. There also are post operative findings in the right breast with a scar marker present. No significant masses, calcifications, or other findings are seen in either breast. There has been no significant interval change. IMPRESSION: BENIGN There is no mammographic evidence of malignancy. A 1 year screening mammogram is recommended. The patient will be notified by letter of the results. Clint Ayoub Jr., D.O. cw/:10/02/2018 09:00:14 Glass Curvature Gauger: Isabella HERZOG(Isadora)(M), [facility] letter sent: Compared to Prior B9 Mammogram BI-RADS: 2 Benign
== END ==
LOC: MAMMO 13:55
PROVIDERS: ATTEND Family Medicine
DX: Z12.31 Encounter for screening mammogram for malignant neoplasm of breast (principal)
CPT/HCPCS: 77067

== ENCOUNTER → 2019-12-17 | Day surgery (SDC) | payer BC ==
[~2019-12-17] MED LIST changes: +CELEBREX100 MG PO; +CINNAMON500 MG PO; +EPHEDRINE SULFATE INJ 50 MG/ML VIAL ONE; +FENTANYL CITRATE/PF 100MCG/2 ML INJ ONE; +GABAPENTIN300 MG PO; +GLYCOPYRROLATE INJ 0.2 MG/ML VIAL ONE; +HYOSCYAMINE 0.125 MG TAB ONE; +LEVOCETIRIZINE D5 MG PO; +LIDOCAINE HCL 2% LOCAL INJ 5 ML SDV VIAL INJ ONE; +MIDAZOLAM HCL 2 MG/2 ML VIAL ONE; +PHENYLEPHRINE HCL 1% 10 MG/ML VIAL ONE; +PROPOFOL IV EMULSION 10 MG/ML 50 ML VIAL ONE; +SUCRALFATE1 GM PO; +ULTRAM50 MG PO
[2019-12-17 09:52] LABS: WBC,FECAL (FECAL LACTOFERRIN) POSITIVE (NEGATIVE)
[2019-12-17 10:35] VITALS: BP 112/81
[2019-12-17 14:37] LABS: C DIFFICILE TOXIN A&B AMP PROB NEGATIVE (NEGATIVE)
--- NOTE | 2019-12-17 17:25 | Operative Report ---
DATE OF PROCEDURE: 12/17/2019 SURGEON: Burak Zelaya MD PROCEDURE: Colonoscopy with polypectomy and biopsies. INDICATION FOR COLONOSCOPY: History of bloody stools, personal history of colon polyps. MEDICATIONS: The patient was done under MAC, please see Anesthesiologist's note. PROCEDURE IN DETAIL: With the patient in left lateral decubitus position, a flexible fiberoptic Olympus colonoscope was inserted into the rectum with ease and advanced all the way to the cecum. Mucosa overlying the cecum appeared to be within normal limits. The ileocecal valve was intubated and the scope was advanced into the terminal ileum. Biopsies were obtained. The scope was then withdrawn back into the colon. It was then withdrawn slowly and the mucosa overlying the ascending, transverse, descending, sigmoid, and rectum revealed some patchy mild inflammatory changes and multiple random biopsies were obtained. Eight polyps were hot biopsied from the sigmoid colon. The scope was then retroflexed into the distal rectum and small internal hemorrhoids were noted, none of which was actively bleeding. The scope was then straightened out, it was subsequently withdrawn after securing an adequate stool specimen that was sent for the appropriate stool studies. The patient tolerated the procedure well. IMPRESSION: 1. Mild patchy colitis. 2. Diverticulosis, sigmoid colon. 3. Sigmoid colon polyps x8, hot biopsied. 4. Proctitis, mild, biopsied. 5. Internal hemorrhoids, none actively bleeding. PLAN: Follow up histology. Follow up stool studies. Change Bentyl to 20 mg one p.o. t.i.d. Start VSL#3 one p.o. daily. The patient might benefit from a followup colonoscopy in 3 years. Burak Zelaya MD [facility] /[id number] cc: Fernandez Rolle DO
== END | disposition home or self-care (01) ==
LOC: OR 07:00
PROVIDERS: ATTEND Internal Medicine Gastroenterology
DX: K52.9 Noninfective gastroenteritis and colitis, unspecified (principal); K57.30 Diverticulosis of large intestine without perforation or abscess without bleeding; K63.5 Polyp of colon; K62.89 Other specified diseases of anus and rectum; K64.8 Other hemorrhoids; Z86.010 Personal history of colon polyps; Z88.5 Allergy status to narcotic agent; R73.03 Prediabetes; K21.9 Gastro-esophageal reflux disease without esophagitis; G89.29 Other chronic pain; I10 Essential (primary) hypertension; J30.2 Other seasonal allergic rhinitis; Z01.810 Encounter for preprocedural cardiovascular examination
CPT/HCPCS: 45380; 45384; 83630; 83993; 87045; 87177; 87328; 87493; 93005; J2001; J2250; J2370; J2704; J3010; 45378

== ENCOUNTER 2020-07-13 21:43 | Emergency (ER) | payer BC ==
[~2020-07-13] VITALS: Ht 309.9 cm; Wt 70.3 kg
[~2020-07-13 21:43] MED LIST changes: -EPHEDRINE SULFATE INJ 50 MG/ML VIAL ONE; -FENTANYL CITRATE/PF 100MCG/2 ML INJ ONE; -GLYCOPYRROLATE INJ 0.2 MG/ML VIAL ONE; -HYOSCYAMINE 0.125 MG TAB ONE; -LIDOCAINE HCL 2% LOCAL INJ 5 ML SDV VIAL INJ ONE; -MIDAZOLAM HCL 2 MG/2 ML VIAL ONE; -PHENYLEPHRINE HCL 1% 10 MG/ML VIAL ONE; -PROPOFOL IV EMULSION 10 MG/ML 50 ML VIAL ONE
--- NOTE | 2020-07-13 21:56 | Emergency Department Note ---
History of Present Illnes History of Present Illness History of Present Illness This is a 59 year old female presents to the ED for spontaneous dislocation of R hip prosthesis prior to arrival . 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: No Onset (how long ago): minute(s) Location: R hip Radiation: Reports extremity Severity: severe Onset quality: sudden Duration (how long): hour(s) Timing of current episode: constant Progression: worsening Chronicity: new Context: Reports trauma/injury Relieving factors: immobilization, rest Exacerbating factors: movement Associated symptoms: Denies denies other symptoms, Denies confusion, Denies c hest pain, Denies cough, Denies diaphoresis, Denies fever/chills, Denies headaches, Denies loss of appetite, Denies malaise, Denies nausea/vomiting, Denies rash, Denies seizure, Denies shortness of breath, Denies syncope, Denies weakness, Denies other Treatments prior to arrival: none Past Medical/Family History Physician Review I have reviewed the patient's past medical and family history. Any updates have been documented here. Past Medical History Recent Fever: No Clinical Suspicion of Infectio: No New/Unexplained Change in Ment: No Other Medical History: Seasonal allergies Other Surgery: x2 Hip replacement Right x2 Carpal Tunnel Social History Smoking Cessation: Never Smoker Alcohol Use: None Any Illegal Drug Use: No Other Last Tetanus: UTD Review of Systems Review of Systems Constitutional: Reports no symptoms EENTM: Reports no symptoms Cardiovascular: Reports no symptoms Respiratory: Reports no symptoms Gastrointestinal: Reports no symptoms Genitourinary: Reports no symptoms Musculoskeletal: Reports joint pain Integumentary: Reports no symptoms Neurological: Reports no symptoms Psychological: Reports no symptoms Endocrine: Reports no symptoms Hematological/Lymphatic: Reports no symptoms Physical Exam Related Data Allergies: Coded Allergies: codeine (Verified Allergy, Mild, ITCHING, 12/07/14) Triage Vital Signs Vital Signs Date Time Temp Pulse Resp B/P (MAP) Pulse Ox O2 Delivery O2 Flow Rate FiO2 07/13/20 21:43 98.5 61 20 151/75 98 Room Air 07/13/20 22:51 2.0 Vital signs reviewed: Yes Physical Exam CONSTITUTIONAL Constitutional: Present obese HENT HENT: Present normocephalic, Present atraumatic, Present oropharynx clear/moist, Present nose normal HENT L/R: Present left ext ear normal, Present right ext ear normal EYES Eyes: Reports PERRL, Reports conjunctivae normal NECK Neck: Present ROM normal PULMONARY Pulmonary: Present effort normal, Present breath sounds normal CARDIOVASCULAR Cardiovascular: Present heart sounds normal, Present tachycardia GASTROINTESTINAL Abdominal: Present soft, Present nontender, Present bowel sounds normal GENITOURINARY Genitourinary: Present exam deferred SKIN Skin: Present warm, Present dry MUSCULOSKELETAL Musculoskeletal: Present deformity (R hip) NEUROLOGICAL Neurological: Present alert, Present oriented x 3, Present no gross motor or sensory deficits PSYCHOLOGICAL Psychological: Present mood/affect normal, Present judgement normal Results Imaging Imaging results reviewed: Yes Impressions [place] [address] Patient Name: GEMA BAUGH MR #: [id number] : 1960 Age/Sex: 59/F Req #: [id number] Adm Physician: Ordered by: YAEL GRIFFITH DO Report #: [id number] Location: ER Room/Bed: Procedure: [id number] DX/HIP RIGHT 2-3 VW (+/- PELVIS) Exam Date: Exam Time: REPORT STATUS: Signed HIP RIGHT 2-3 VW (+/- PELVIS) - 3 views HISTORY: Pain COMPARISON: None available. IMPRESSION: Right hip arthroplasty with superior dislocation of the femoral head prosthesis from acetabular cup. No evidence of acute displaced fracture. Signed by: Dr. Greg Peguero MD on 07/13/2020 10:49 PM Dictated By: GREG PEGUERO MD 48 Transcribed By: MARLEEN on 07/13/202248 COPY TO: YAEL GRIFFITH DO~ [place] [address] Patient Name: GEMA BAUGH MR #: [id number] : 1960 Age/Sex: 59/F Req #: [id number] [facility] Physician: Ordered by: YAEL GRIFFITH DO Report #: [id number] Location: ER Room/Bed: Procedure: [id number] DX/HIP RIGHT 2-3 VW (+/- PELVIS) Exam Date: Exam Time: REPORT STATUS: Signed HIP RIGHT 2-3 VW (+/- PELVIS) - 2 views HISTORY: Pain COMPARISON: Same day x-ray IMPRESSION: Interval reduction of previously seen superior right hip prosthesis dislocation. The right femoral head prosthesis is now within acetabular cup. Signed by: Dr. Greg Peguero MD on 07/13/2020 11:40 PM Dictated By: GREG PEGUERO MD 39 Transcribed By: MARLEEN on 07/13/202339 COPY TO: YAEL GRIFFITH DO~ Procedures Orthopedic Joint Reduction Joint: Joint #1 Time out performed: Yes Side: right Joint reduction location: hip Local anesthesia: lidocaine 1% Shoulder technique used (if ap: traction/counter-traction Technique used: traction/counter-traction Post-reduction neuor exam: intact Post-reduction vascular exam: intact Post-reduction xrays obtained: Yes Xray results: reduced Splint applied: No Patient tolerated procedure: well Additional comments patient given total of 50 mg Ketamine and 100 mg Propofol . During sedation , patient became apneic and patient had to be actively BMV. Oxygen saturation improved with patient ultimately able to have spontaneous ventillation. Procedural Sedation Indication: fracture/dislocation reduction ASA class: II Preparation: sports therapist applied, pulse oximeter, supplemental O2 applied, suction/airway equip at bedside, IV secured Ketamine: IV Ketamine dose (mg): 50 IV Propofol dose (mg): 100 Patient tolerated procedure: other Complications: respiratory depresion, repositioned Interventions: oxygen applied, airway repositioned, assist by BVM Assessment & Plan Medical Decision Making MDM Diff Dx : sprain strain, hip dislocation, hip fx. Assessment & Plan Final Impression: (1) Hip dislocation, right Depart Disposition: HOME, SELF-longterm Meds Reported Medications Gabapentin (GABAPENTIN) 300 Mg Capsule, 300 MG PO BID, #60 CAP 12/13/19 Celecoxib* (CELEBREX*) 100 Mg Capsule, 20 MG PO DAILY, #30 CAP 12/13/19 Levocetirizine Dihydrochloride (LEVOCETIRIZINE DIHYDROCHLORIDE) 5 Mg Tablet, 5 MG PO DAILY 12/13/19 Tramadol Hcl (ULTRAM) 50 Mg Tablet, 50 MG PO PRN, TAB 12/13/19 Sucralfate (SUCRALFATE) 1 Gm Tablet, 1 GM PO PRN, TAB 12/13/19 Cinnamon Bark (CINNAMON) 500 Mg Capsule, PO DAILY 12/13/19 Aspirin (ASPIR 81) 81 Mg Tablet.dr, 81 MG PO DAILY 08/07/18 Biotin (BIOTIN) 2,500 Mcg Capsule, 1 CAP PO DAILY 08/07/18 Ubidecarenone (CO Q10) 100 Mg Capsule, 100 MG PO DAILY 08/07/18 Lisinopril (LISINOPRIL) 10 Mg Tablet, 40 MG PO DAILY, #30 TAB 08/07/18 Dicyclomine Hcl (DICYCLOMINE HCL) 20 Mg Tablet, 20 MG PO PRN, TAB 08/07/18 Metoprolol Tartrate (METOPROLOL TARTRATE) 25 Mg Tablet, 25 MG PO DAILY, TAB 08/07/18 [Vitamin C] No Conflict Check, 1 TAB PO DAILY 11/30/15 [Fish Oil ] No Conflict Check, 1 CAP PO DAILY 12/07/14 [Vitamin B-12] No Conflict Check, 1 TAB PO DAILY 12/07/14 Multivitamin (MULTIVITAMINS) 1 Each Capsule, PO DAILY 12/07/14 Montelukast Sodium (SINGULAIR) 10 Mg Tablet, 40 MG PO DAILY 12/07/14 Esomeprazole Magnesium (NEXIUM) 40 Mg Capsule.dr, 40 MG PO DAILY PROTONIX THERAPEUTIC SUBSTITUTE FOR NEXIUM PER [facility] 12/07/14 YAEL GRIFFITH DO Jul 13, 2020 21:56
[2020-07-13] MEDS ORDERED: KETAMINE HCL INJ 50 MG/ML 10 ML VIAL IV ONE (22:00)
[2020-07-13] MEDS ORDERED: PROPOFOL IV EMULSION 10 MG/ML 20 ML VIAL IV ONE (22:00)
--- OUTSIDE RECORDS SUMMARY | 2020-07-13 22:07 | XMS REPORT | Clinical Summary ---
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 Active montelukast (SINGULAIR) Take 10 mg by 0 10 mg tablet mouth daily. Active sucralfate (CARAFATE) 1 Take 1 g by 0 gram tablet mouth daily. Active MULTIVITAMIN (MULTI-DAY Take 1 tablet 0 ORAL) by mouth daily. Active aspirin 81 mg chewable Chew 81 mg 0 tablet daily. Active DOCOSAHEXANOIC ACID/EPA Take 1,200 mg 0 (FISH OIL ORAL) by mouth daily. Active CYANOCOBALAMIN, VITAMIN Take 1 tablet 0 B-12, (VITAMIN B-12 ORAL) by mouth daily. Active metoprolol tartrate Take 25 mg by 0 (LOPRESSOR) 25 mg tablet mouth 2 (two) times a day. Active dicyclomine (BENTYL) 20 Take 20 mg by 0 mg tablet mouth 3 (three) times a day as needed (Abdominal cramping). Active ascorbic acid, vitamin C, Take 1,000 mg 0 (vitamin C) 1000 MG by mouth tablet daily. Active ubidecarenone (CO Q-10 Take 1 tablet 0 ORAL) by mouth daily. Active cholecalciferol, vitamin Take 500 0 D3, (VITAMIN D3 ORAL) Int'l Units by mouth daily. Active lisinopril Take 1 tablet 30 tablet 0 (PRINIVIL,ZESTRIL) 40 mg (40 mg total) 8 tablet by mouth daily. Active xxgrumnzwfdz-dpxq-jtnwg Take 1 tablet 0 acid 18-400 mg-mcg tablet by mouth. Active lifitegrast (Xiidra) 5 % INSTILL 1 0 09/25 dropperette DROP INTO 8 BOTH EYES TWICE A DAY Active levocetirizine (XYZAL) 5 TAKE 1 TABLET 0 09/18 MG tablet EVERY MORNING 8 Active gabapentin (NEURONTIN) Take 300 mg 0 02 300 mg capsule by mouth 2 0 (two) times a day. Active celecoxib (CeleBREX) 200 TAKE ONE 0 09/18 MG capsule CAPSULE BY 8 MOUTH EVERY DAY NEEDED Active blood-glucose meter CHECK BLOOD 0 ([employer]Touch Verio IQ Meter) SUGAR 8 misc DIRECTED Active biotin 10,000 mcg capsule Take by 0 mouth. 09/13/2019 Discontinued traMADol (ULTRAM) 50 mg Take 1 tablet 360 tablet 0 tablet (50 mg total) 9 by mouth every 4 (four) hours as needed for moderate pain for up to 121 days. 03/30/2020 Discontinued celecoxib (CeleBREX) 200 Take 1 60 capsule 5 1 MG capsule capsule (200 9 mg total) by mouth 2 (two) times a day for 30 days. 10/25/2019 Discontinued (Reorder) traMADol (ULTRAM) 50 mg Take 1 tablet 40 tablet 3 tabletIndications: acute (50 mg total) 9 pain by mouth every 6 (six) hours as needed for moderate pain for up to 90 days .Acute Pain. No more than 6 daily 02/09/2020 traMADol (ULTRAM) 50 mg Take 1 tablet 40 tablet 0 tabletIndications: acute (50 mg total) 9 pain by mouth every 6 (six) hours as needed for moderate pain for up to 107 days .Acute Pain. 03/22/2020 traMADoL (ULTRAM) 50 mg acute pain. 60 tablet 0 tabletIndications: acute Take 1 tab po 0 pain q 6-8 hrs prn # 60 04/29/2020 celecoxib (CeleBREX) 200 TAKE 1 180 capsule 1 0 MG capsule CAPSULE (200 0 MG TOTAL) BY MOUTH 2 (TWO) TIMES A DAY FOR 30 DAYS. 05/25/2020 traMADoL (ULTRAM) 50 mg Take 1 tablet 60 tablet 0 07/01/202 tabletIndications: (50 mg total) 0 chronic pain by mouth every 6 (six) hours as needed for moderate pain for up to 15 days .chronic pain. Active Problems Problem Noted Date Chest pain, rule out acute myocardial infarction Hip dislocation, right, initial encounter 08/18/2017 Encounters Care Team Description Date Type Specialty Michael Sandoval MD 05/31/2020 Telephone Orthopedic Surgery Michael Sandoval MD 05/10/2020 Hospital Radiology Encounter Michael Sandoval MD Dislocation of internal right hip prosth esis, subsequent encounter (Primary Dx) 05/10/2020 Office Visit Orthopedic Surgery Marlee Antunez MA 05/09/2020 Orders Only Orthopedic Surgery Marlee Antunez MA Right hip pain (Primary Dx) 05/09/2020 Orders Only Orthopedic Surgery 05/09/2020 Travel Sumeet Grant MD 03/30/2020 Refill Orthopedic Surgery Cherry Durham MA Primary osteoarthritis of right knee (Pr imary Dx); Primary osteoarthritis of left knee 03/14/2020 Telephone Orthopedic Surgery Cherry Durham MA Primary osteoarthritis of right knee (Pr imary Dx); Primary osteoarthritis of left knee 03/14/2020 Refill Orthopedic Surgery Sumeet Grant MD 03/13/2020 Refill Orthopedic Surgery Nickie Amaro MA 10/25/2019 Orders Only Orthopedic Surgery Sumeet Grant MD Primary osteoarthritis of left knee (Kristine cherry Dx); Chronic pain of left knee 09/13/2019 Office Visit Orthopedic Surgery after 07/13/2019 Immunizations Name Administration Dates Next Due FLUCELVAX QUAD PF 08/19/2017 Pneumococcal Conjugate 08/19/2017 13-Valent Family History Medical History Relation Name Comments Heart disease Father Kidney disease Father Diabetes Maternal Coty Grandmother Marpam Cancer Mother Daphney Esquivel pancreatic canc er at age 39 Relation Name Status Comments Father Maternal Grandmother Coty Moss Mother Daphney Esquivel Social History Date Tobacco Use Types Packs/Day Years Used Current Every Day Smoker Cigarettes 0.5 4 Smokeless Tobacco: Never Used Tobacco Cessation: Counseling Given: No Drinks/Week oz/Week Comments Alcohol Use occasional Yes Sex Assigned at Date Recorded Not on file Industry Job Start Date Occupation Not on file Not on file Not on file Travel End Travel History Travel Start No recent travel history available. Last Filed Vital Signs Not on file Plan of Treatment Care Team Description Date Type Specialty Tramaine Allen MD [address] [place], [place] [id number] 08/07/2020 Hospital Orthopedic Surgery Encounter Tramaine Allen MD [address] [place], [place] [id number] REVISION, ARTHROPLASTY, HIP 08/07/2020 Surgery Orthopedic Surgery Health Maintenance Due Date Last Done Comments DIABETIC RETINAL EYE EXAM 1960 DIABETIC FOOT EXAM 1970 CERVICAL CANCER SCREENING 1981 BREAST CANCER SCREENING 2010 COLONOSCOPY SCREENING 2010 SHINGLES VACCINES (#1) 2010 INFLUENZA VACCINE 08/10/2020 08/19/2017 Procedures Comments Procedure Name Priority Date/Time Associated Diag nosis XR HIP 2-3 VIEWS RIGHT Routine 05/10/2020 Right h ip pain 3:30 PM CDT XR ABD/PELVIC EXTERNAL Routine 05/09/2020 STUDY 3:38 PM CDT XR KNEE 4+ VW LEFT Routine 09/13/2019 Chronic lydia n of left knee 10:50 AM [employer] after 07/13/2019 Results * XR Hip 2-3 View Right (05/10/2020 3:30 PM CDT) Specimen Narrative Performed At [facility] X-rays right hip AP pelvis and lateral right hip 05/10/2020: X-rays confirm satisfactory reduction of the s uperior dislocation of the femoral head prosthesis. She is good bony ingro wth of the femoral prosthesis and the acetabulum. The cup is abducted per haps 50 with apparent good bone ingrowth. Performing Organization Address City/State[facility] Ph one Number [facility] [address] [place] [address] * XR Abd/Pelvic External Study (05/09/2020 3:38 PM CDT) Specimen Narrative Performed At This exam was not acquired at a [facility] facility an d has not been [facility] interpreted by a [facility] Provider. The exam was imported into our imaging system. Performing Organization Address City/State/Zipcode Ph one Number [facility] [address] [place] [address] * XR Knee 4+ Vw Left (09/13/2019 10:50 AM [employer]) Specimen Narrative Performed At [facility] 4 views (AP, PA, [employer],lateral) of the Left knee reveal no evidence of fracture, dislocation or any acute osseous abnormalities. There is moder ate medial compartment predominant arthriti c changes seen. Performing Organization Address [facility] Number [facility] [address] [place] [address] after 07/13/2019 Insurance Type Payer Benefit Subscriber ID Effective Phone Address Plan / Dates Group PPO BCBS BCBS xxxxxxxxxxxx [id number] CHOICE resent PPO/ESTIVEN [employer] PPO Advance Directives For more information, please contact: [phone] Patient Hospital Internship Explanation Type Date Recorded Advance Directives, 01/02/2018 3:27 PM Living Will and Medical Power of Web Services Professional
--- OUTSIDE RECORDS SUMMARY | 2020-07-13 22:07 | XMS REPORT | Continuity of Care Document ---
Author Author [facility] t Organization [facility] Address [address] [place] [address] Phone Unavailable Care Team Providers Care Drive Thru Order Taker Name Role Phone AlainaMichael Maile PCP Jaime PARK, Ethan Rodriguez Attphys [phone] BEA ALLEN M.D. Attphys Unavailable Harmony HANKS, Marlee Attphys Unavailable Rudy PARK, Oc Fay Attphys Herminio HANKS, Cherry Attphys Unavailable Prem HANKS, Nickie Attphys Unavailable MAURO ESPINOZA Attphys Unavailable GOMEZ, SOUHEIL Attphys Unavailable GOMEZ, SOUHEIL Admphys Unavailable Payers Payer Name Policy Type Policy Number Effective Date Expiration Date S ource BCBSBCBS CHOICE PPO/FEDERAL EMPL PPOxxxxxxxxxxxx2017-Pre sentPPO xxxxxxxxxxxx 2017 00:00:00 Otis Ruffin Problems Condition Name Condition Details Condition Category Status Onset Date Resolution Date Last Treatment Date Treating Clinician Comments Source Chest pain, rule out acute myocardial infarction Chest pain, rule out acute myocardial infarction Disease Active 2018-03-24 00:00:00 Otis Ruffin Hip dislocation, right, initial encounter Hip dislocat ion, right, initial encounter Disease Active 2017-08-18 00:00:00 Matthew Ruffin History of Cancer History of Cancer Problem Resolved [facility] History of Diabetes mellitus, type 2 History of Diabetes eneida litus, type 2 Problem Resolved [facility] Other orthopedic aftercare Other orthopedic aftercare Problem Active [facility] History of hemiarthroplasty of left hip History of hemiarthr oplasty of left hip Problem Active [facility] Right hip pain Right hip pain Problem Active [facility] Status post hip replacement, right Status post hip replacement, right Problem Active [facility] Recurrent dislocation of right hip Recurrent dislocation of righ t hip Problem Active [facility] Allergies, Adverse Reactions, Alerts Allergy Name Allergy Type Status Severity Reaction(s) Onset Date Inacti ve Date Treating Clinician Comments Source Codeine Drug Allergy Active Itching 2016-01-29 00:00:00 [facility] Codeine Propensity to adverse reactions to drug Active Itching 2016-01-29 00:00:00 Otis Waldron t Family History Family Member Diagnosis Comments Start Date Stop Date Source Mother Family history of malignant neoplasm [facility] Father Family history of heart failure [facility] Natural father Heart disease Otis Ruffin Natural father Kidney disease Lynn Ruffin Maternal grandmother Diabetes Mary Ruffin Natural mother Cancer [facility] thod[facility] Social History Social Habit Start Date Stop Date Quantity Comments Source History of tobacco use Cigarette Smoker Otis Ruffin Sex Assigned At Iwona Ruffin Cigarettes smoked current (pack per day) - Reported 00:00:00 2020-05-10 00:00:00 Otis Ruffin Cigarette pack-years 2020-05-10 00:00:00 2020-05-10 00:00:00 Otis Ruffin Alcohol intake 2020-05-10 00:00:00 2020-05-10 00:00:00 Current drinker of alcohol (finding) Otis Ruffin Alcohol Comment 2016-07-04 00:00:00 2016-07-04 00:00:00 occasional Otis Ruffin Smoking Status Start Date Stop Date Source Ex-smoker (finding) [facility] Current every day smoker 2020-05-10 00:00:00 Iwona Ruffin Current some day smoker 2016-08-30 00:00:00 [facility] Medications Ordered Medication Name Filled Medication Name Start Date Stop Da te Current Medication? Ordering Clinician Indication Dosage Frequency Signature (SIG) Comments Components Source tuymtyfifcyw-woea-ogcor acid 18-400 mg-mcg tablet 2020-05-10 16:18:56 Yes 1{tbl} Take 1 tablet by mouth. Liliya Ruffin biotin 10,000 mcg capsule 2020-05-10 16:18:56 Yes Take by mouth. Otis Ruffin traMADoL (ULTRAM) 50 mg tablet 2020-05-10 00:00:00 2020-05-10 6 23:59:00 No chronic pain 50mg Q6H Take 1 tablet (50 mg total) by mouth every 6 (six) hours as needed for moderate pain for up to 15 days .chronic pain. Otis Ruffin celecoxib (CeleBREX) 200 MG capsule 2020-03-30 00:00:0 0 2020-04-29 23:59:00 No 200mg Q.5D TAKE 1 CAPSULE (200 MG TOTAL) BY MOUTH 2 (TWO) TIMES A DAY FOR 30 DAYS. Otis Ruffin traMADoL (ULTRAM) 50 mg tablet 2020-03-14 00:00:00 2020-03-10 3 23:59:00 No acute pain acute pain. Take 1 tab po q 6-8 hrs prn # 60 Otis Ruffin gabapentin (NEURONTIN) 300 mg capsule 2020-02-18 00:00:00 Yes 300mg Q.5D Take 300 mg by mouth 2 (two) times a day. Otis Ruffin traMADol (ULTRAM) 50 mg tablet 2019-10-25 00:00:00 1 23:59:00 No acute pain 50mg Q6H Take 1 tablet (50 mg total) by mouth every 6 (six) hours as needed for moderate pain for up to 107 days .Acute Pain. Otis Ruffin celecoxib (CeleBREX) 200 MG capsule 2019-09-13 00:00:0 0 2020-03-30 00:00:00 No 200mg Q.5D Take 1 capsule (200 mg total) by mouth 2 (two) times a day for 30 days. Otis Ruffin traMADol (ULTRAM) 50 mg tablet 2019-09-13 00:00:00 2019-10-10 6 00:00:00 No acute pain 50mg Q6H Take 1 tablet (50 mg total) by mouth every 6 (six) hours as needed for moderate pain for up to 90 days .Acute Pain. No more than 6 daily Otis Ruffin traMADol (ULTRAM) 50 mg tablet 2019-06-10 00:00:00 2019-09-13 00 :00:00 No 50mg Q4H Take 1 tablet (50 mg total) by mouth every 4 (four) hours as needed for moderate pain for up to 121 days. Lynn Ruffin esomeprazole (NexIUM) 40 MG capsule 2018-10-15 13:13:15 Yes 40mg QD Take 40 mg by mouth daily. Otis grissom montelukast (SINGULAIR) 10 mg tablet 2018-10-15 13:13:15 Ye s 10mg QD Take 10 mg by mouth daily. Otis ortiz sucralfate (CARAFATE) 1 gram tablet 2018-10-15 13:13:15 Yes 1g QD Take 1 g by mouth daily. Otis Ruffin MULTIVITAMIN (MULTI-DAY ORAL) 2018-10-15 13:13:15 Yes 1{tbl} QD Take 1 tablet by mouth daily. Otis Larios st aspirin 81 mg chewable tablet 2018-10-15 13:13:15 Yes 81mg QD Chew 81 mg daily. Otis Ruffin DOCOSAHEXANOIC ACID/EPA (FISH OIL ORAL) 2018-10-15 13:13:15 Yes 1200mg QD Take 1,200 mg by mouth daily. Otis Ruffin CYANOCOBALAMIN, VITAMIN B-12, (VITAMIN B-12 ORAL) 2018-10-15 13:13:15 Yes 1{tbl} QD Take 1 tablet by mouth daily. Otis Ruffin metoprolol tartrate (LOPRESSOR) 25 mg tablet 2018-10-15 13:13:15 Yes 25mg Q.5D Take 25 mg by mouth 2 (two) times a day. Otis Ruffin dicyclomine (BENTYL) 20 mg tablet 2018-10-15 13:13:15 Ye s 20mg Q.[id number] Take 20 mg by mouth 3 (three) times a da y as needed (Abdominal cramping). Otis Ruffin ascorbic acid, vitamin C, (vitamin C) 1000 MG tablet 2 13:13:15 Yes 1000mg QD Take 1,000 mg by mouth daily. Otis Ruffin ubidecarenone (CO Q-10 ORAL) 2018-10-15 13:13:15 Yes 1{tbl} QD Take 1 tablet by mouth daily. Otis Ruffin cholecalciferol, vitamin D3, (VITAMIN D3 ORAL) 2018-10-15 13:13: 15 Yes 500[iU] QD Take 500 Int'l Units by mouth daily. Otis Ruffin lifitegrast (Xiidra) 5 % dropperette 2018-09-25 00:00:00 Ye s INSTILL 1 DROP INTO BOTH EYES TWICE A DAY [facility] blood-glucose meter (Burtuch Verio IQ Meter) [facility] 2018-09 00:00:00 Yes CHECK BLOOD SUGAR DIRECTED Otis Ruffin levocetirizine (XYZAL) 5 MG tablet 2018-09-18 00:00:00 Yes TAKE 1 TABLET EVERY MORNING Otis Ruffin celecoxib (CeleBREX) 200 MG capsule 2018-09-18 00:00:00 Yes TAKE ONE CAPSULE BY MOUTH EVERY DAY NEEDED Matthew Ruffin lisinopril (PRINIVIL,ZESTRIL) 40 mg tablet 2018-03-25 00:00:00 Yes 40mg QD Take 1 tablet (40 mg total) by mouth daily. Otis Ruffin aspirin 81 MG EC tablet 2016-08-29 09:50:08 Yes 81mg QD Take 81 mg by mouth daily. [facility] lisinopril-hydrochlorothiazide (PRINZIDE,ZESTORETIC) 20-12.5 mg per tablet 2016-01-29 07:46:05 Yes 1{tbl} QD Take 1 tablet by m outh daily. [facility] esomeprazole (NEXIUM) 40 MG capsule 2016-01-29 07:46:05 Yes 40mg QD Take 40 mg by mouth daily. [facility] montelukast (SINGULAIR) 10 mg tablet 2016-01-29 07:46:05 Ye s 10mg QD Take 10 mg by mouth nightly. [facility] sucralfate (CARAFATE) 1 gram tablet 2016-01-29 07:46:05 Yes 1g Q.25D Take 1 g by mouth 4 (four) times daily. [facility] NexIUM 10 MG Oral Packet NexIUM 10 MG Oral Packet Yes [facility] Lisinopril TABS Lisinopril TABS Yes [facility] Singulair 10 MG Oral Tablet Singulair 10 MG Oral Tablet Yes [facility] Metoprolol Tartrate 100 MG Oral Tablet Metoprolol Tartrate 100 M G Oral Tablet Yes [facility] CeleBREX 200 MG Oral Capsule CeleBREX 200 MG Oral Capsule Yes [facility] Sucralfate 1 GM Oral Tablet Sucralfate 1 GM Oral Tablet Yes [facility] Fish Oil OIL Fish Oil OIL Yes [facility] Vitamin D (Cholecalciferol) 10 MCG (400 UNIT) Oral Tab let Chewable Vitamin D (Cholecalciferol) 10 MCG (400 UNIT) Oral Tablet Chewable Yes [facility] Vitamin C CAPS Vitamin C CAPS Yes [facility] SM Vitamin B-12 TABS SM Vitamin B-12 TABS Yes [facility] Biotin Forte TABS Biotin Forte TABS Yes [facility] Aspirin 81 MG TABS Aspirin 81 MG TABS Yes [facility] Cinnamon Plus Chromium CAPS Cinnamon Plus Chromium CAPS Yes [facility] Immunizations Ordered Immunization Name Filled Immunization Name Date Status Comments Source Pneumococcal Conjugate 13-Valent 2017-08-19 00:00:00 Compl eted Otis Ruffin FLUCELVAX QUAD PF 2017-08-19 00:00:00 Completed Otis Ruffin Vital Signs Vital Name Observation Time Observation Value Comments Source Body height 2020-05-26 14:48:00 62 [in_us] [facility] Weight 2020-05-26 14:48:00 160 [lb_av] [facility] Body mass index (BMI) [Ratio] 2020-05-26 14:48:00 29.26 kg/m2 [facility] Height 2018-04-29 14:52:00 62 [in_us] [facility] Weight 2018-04-29 14:52:00 160 [lb_av] [facility] Body Mass Index Calculated 2018-04-29 14:52:00 29.26 kg/m2 [facility] Procedures Procedure Date / Time Performed Performing Clinician Sourc e XR HIP 2-3 VIEWS RIGHT 2020-05-10 15:30:39 Michael Sandoval XR ABD/PELVIC EXTERNAL STUDY 2020-05-09 15:38:51 Coleman Sandoval XR KNEE 4+ VW LEFT 2019-09-13 10:50:40 Sumeet Grant M ethodist [U] XRAY HIP UNILATERAL MIN 2 VWS RIGHT [id number] 2018-04-29 00:00:0 0 [facility] replacement [facility] History of Hip surgery [facility] History of Shoulder surgery [facility] History of Hip replacement partial [facility] Plan of Care Planned Activity Planned Date Details Comments Source Future Scheduled Test 2020-08-10 00:00:00 INFLUENZA VACCINE [code = INFLUENZA VACCINE] [facility] Future Scheduled Test 2010 00:00:00 BREAST CANCER SCRE ENING [code = BREAST CANCER SCREENING] [facility] Future Scheduled Test 2010 00:00:00 COLONOSCOPY SCREEN ING [code = COLONOSCOPY SCREENING] [facility] Future Scheduled Test 2010 00:00:00 SHINGLES VACCINES (#1) [code = SHINGLES VACCINES (#1)] [facility] Future Scheduled Test 1981 00:00:00 Screening for makayla gnant neoplasm of cervix (procedure) [code = 180142293] [facility] Future Scheduled Test 1970 00:00:00 DIABETIC FOOT EXAM [code = DIABETIC FOOT EXAM] [facility] Future Scheduled Test 1960 00:00:00 DIABETIC RETINAL E YE EXAM [code = DIABETIC RETINAL EYE EXAM] [facility] Future Appointment 2020-08-07 08:45:00 Bea Allen MD, [address] [place] [address]; [address] [place] [address] Future Appointment 2020-08-07 08:45:00 Bea Allen MD, [facility] [place]; Suite [facility], [address] [facility] Encounters Start Date/Time End Date/Time Encounter Type Admission Type Attendi [facility] Care Department Encounter ID Source 2020-05-26 13:45:00 2020-05-26 13:45:00 Appointment; BEA ALLEN M.D. BEA ALLEN M.D. [facility] Orthopedics [facility] [id number] [facility] 2020-05-10 00:00:00 2020-05-10 00:00:00 Outpatient ALL S[facility]OVAL [facility] [id number] [facility] 2020-05-10 00:00:00 2020-05-10 00:00:00 Outpatient ALL SANDOVAL [facility] [id number] [facility] 2020-05-10 00:00:00 2020-05-10 00:00:00 Outpatient ALL S[facility]OVAL [facility] [id number] [facility] 2018-04-29 13:30:00 2018-04-29 13:30:00 Appointment; BEA ALLEN M.D. BEA ALLEN M.D. [facility] Ortho and Spine [facility] [place] [id number] [facility] Results Test Description Test Time Test Comments Results Result Comments Source [U] XRAY SPINE LUMBOSACRAL 2 OR 3 VWS [id number] 2020-05-26 15:05:00 Images acquired, not reported on this accession number. [facility] [U] XRAY HIP UNILATERAL MIN 2 VWS RIGHT [id number] 2020-05-26 07:54:0 0 Images acquired, not reported on this accession number. [facility] XR Abd/Pelvic External Study 2020-05-10 15:39:01 This exam was not acquired at a [facility] facility and has not been interpreted by a [facility] Provider. The exam was imported into our imaging system. [facility] MAMMOGRAPHY DIGITAL SCR BILAT 2018-09-30 14:42:00 [place] [address] Patient Name: GEMA BAUGH MR #: [id number] : 1960 Age/Sex: 58/F Req #: [id number] [facility] Physician: Ordered by: ESPINOZA ANDREW DO Report #: [id number] Location: MAMMO Room/Bed: Procedure: [id number] MG/MAMMOGRAPHY DIGITAL SCR BILAT Exam Date: 09/30/18 Exam Time: 1409 REPORT STATUS: Signed #[id number] - [id number] #BILATERAL DIGITAL SCREENING MAMMOGRAM WITH CAD: 09/30/2018 CLINICAL: Routine screening. Comparison is made to exam dated: 05/19/2015 mammogram - [facility]. Current study contains 4 films. The tissue of both breasts is heterogeneously dense. This may lower the sensitivity of mammography. Current study was also evaluated with a Computer Aided Detection (CAD) system. There are benign calcifications in the left breast. There also are post operative findings in the right breast with a scar marker present. No significant masses, calcifications, or other findings are seen in either breast. There has been no significant interval change. IMPRESSION: BENIGN There is no mammographic evidence of malignancy. A 1 year screening mammogram is recommended. The patient will be notified by letter of the results. Clint Deras Jr., D.O. cw/:10/02/2018 09:00:14 Pot Liner: Isabella MATHIAS)(Adore), [facility] letter sent: Compared to Prior B9 Mammogram BI-RADS: 2 Benign Dictated By: CLINT DERAS DO 9 Transcribed By: ALEX on 10/02/18899 COPY TO: MAURO ESPINOZA DO [U] XRAY HIP UNILATERAL MIN 2 VWS RIGHT [id number] 2018-04-29 15:48:0 0 Images acquired, not reported on this accession number. [facility] [U] XRAY HIP UNILATERAL MIN 2 VWS RIGHT [id number] 2018-04-29 08:03:0 0 Images acquired, not reported on this accession number. [facility] Stress Test - Treadmill ONLY [place] [address] Patient Name : GEMA BAUGH MR #: [id number] : 1960 Age/Sex: 56/F Adm Physician : JESUS GOMEZ MD Admit Date : 07/28/17 Location : [facility] Room/Bed : [place] [address] REPORT: Cardiology Report DATE OF STUDY: July [...] this study are explained and discussed. Job#: [id number] Signature Date Dictated By: JOHN ROBLES MD Transcribed By: MERCEDES on 07/29/17 <Electronically signed by JOHN ROBLES MD><<Signature on File>>07/29/171811 COPY TO: CHEST 2 VIEWS [place] [address] Patient Name: GEMA BAUGH MR #: [id number] : 1960 Age/Sex: 56/F Req #: [id number] Adm Physician: Ordered by: ROMI MATHEWS MD Report #: [id number] Location: ER Room/Bed: Procedure: [id number] DX/CHEST 2 VIEWS Exam Date: 07/28/17 Exam Time: 1230 REPORT STATUS: Signed PROCEDURE: X-RAY CHEST, TWO VIEWS COMPARISON: None. INDICATIONS: CHEST PRESSURE, RACING HEART FINDINGS: Lungs are well-inflated. No focal airspace consolidation, pleural effusion, or pneumothorax. Tortuosity of the thoracic aorta with an otherwise normal cardiomediastinal contour. No acute osseous abnormality.. CONCLUSION: No acute cardiopulmonary abnormality. Dictated by: Shawnee Pickett M.D. on 07/28/2017 at 13:01 Electronically approved by: Shawnee Pickett M.D. on 07/28/2017 at 13:01 Dictated By: SHAWNEE PICKETT MD 1301 Transcribed By: DEXTER on 07/28/17 1301 COPY TO: ROMI MATHEWS MD
--- OUTSIDE RECORDS SUMMARY | 2020-07-13 22:07 | XMS REPORT | Clinical Summary ---
Author Author [facility] Address Unknown Phone Unavailable Care Team Providers Care [place] [employer] Maintainer Name Role Phone Maile Foley PCP Allergies Comments Active Allergy Reactions Severity Noted Date Codeine Itching Medium 01/29/2016 Medications End Date Status Medication Sig Dispensed Refills Start Date Active lisinopril-hydrochlorothi Take 1 tablet 0 azide by mouth (PRINZIDE,ZESTORETIC) daily. 20-12.5 mg per tablet Active esomeprazole (NEXIUM) 40 Take 40 mg by 0 MG capsule mouth daily. Active montelukast (SINGULAIR) Take 10 mg by 0 10 mg tablet mouth nightly. Active sucralfate (CARAFATE) 1 Take 1 g by 0 gram tablet mouth 4 (four) times daily. Active aspirin 81 MG EC tablet Take 81 mg by 0 mouth daily. Active Problems Not on file Social History Date Tobacco Use Types Packs/Day Years Used Current Some Day Smoker Alcohol Use Drinks/Week oz/Week Comments Yes Sex Assigned at Date Recorded Not on file Industry Job Start Date Occupation Not on file Not on file Not on file Travel End Travel History Travel Start No recent travel history available. Last Filed Vital Signs Not on file Plan of Treatment Not on file Results Not on fileafter 07/13/2019 Insurance Payer Benefit Subscriber ID Type Phone Address Plan / Group [employer] - [employer] HMO xxxxxxxxxx HMO/POS POS QPOS [phone] [id number] (Home) [place] [address]
--- NOTE | 2020-07-13 22:53 | Diagnostic Imaging Report ---
HIP RIGHT 2-3 VW (+/- PELVIS) - 3 views HISTORY: Pain COMPARISON: None available. IMPRESSION: Right hip arthroplasty with superior dislocation of the femoral head prosthesis from acetabular cup. No evidence of acute displaced fracture. Signed by: Dr. Greg Peguero MD on 07/13/2020 10:49 PM
--- NOTE | 2020-07-13 22:59 | NUR ---
Informed consent obtained at this time. ER MD provided risks and benefits to patient. Patient agreed for conscious sedation with relocation of right hip.
--- NOTE | 2020-07-13 23:00 | NUR ---
Patient placed on child monitor, 2L NC and respiratory therapist called to bedside.
--- NOTE | 2020-07-13 23:04 | NUR ---
Timeout performed. Start of procedure at this time.
--- NOTE | 2020-07-13 23:04 | NUR ---
First attempt to reduce hip unsuccessful and patient was moaning after first attempt. ER MD decided to administer an additional 50mg of propfol IV.
--- NOTE | 2020-07-13 23:06 | NUR ---
Patient placed on nonrebreather 15L at this time
--- NOTE | 2020-07-13 23:07 | NUR ---
Hip popped back into place. Awaiting X-ray confirmation.
--- NOTE | 2020-07-13 23:08 | NUR ---
Patient began to desaturate to 87% on nonrebreather and was manually bagged by RT at this time.
--- NOTE | 2020-07-13 23:14 | NUR ---
Patient began to breath on her own and was alert to person, place, time and year. Addendum: 07/14/20 at 0022 by MEJIA Patient placed back on non rebreather and saturation 100%
--- NOTE | 2020-07-13 23:44 | Diagnostic Imaging Report ---
HIP RIGHT 2-3 VW (+/- PELVIS) - 2 views HISTORY: Pain COMPARISON: Same day x-ray IMPRESSION: Interval reduction of previously seen superior right hip prosthesis dislocation. The right femoral head prosthesis is now within acetabular cup. Signed by: Dr. Greg Peguero MD on 07/13/2020 11:40 PM
[2020-07-14] MEDS ORDERED: PROPOFOL IV EMULSION 10 MG/ML 20 ML VIAL IV ONE (00:30)
[2020-07-14 03:19] VITALS: BP 103/68
== END 2020-07-14 00:40 | disposition home or self-care (01) ==
LOC: ER 21:57
DX: S73.004A Unspecified dislocation of right hip, initial encounter (principal); T84.020A Dislocation of internal right hip prosthesis, initial encounter; X50.1XXA Overexertion from prolonged static or awkward postures, initial encounter; Y92.008 Other place in unspecified non-institutional (private) residence as the place of occurrence of the external cause
CPT/HCPCS: 27257; 73502; 99284; J2704

== ENCOUNTER → 2025-05-16 | Outpatient (REF) | payer OTHER ==
[~2025-05-16] MED LIST changes: +CANDICIDAL CAP1 EACH; +CARVEDILOL3.125 MG PO; +MILK THISTLE175 M2; +ZINC
== END ==
LOC: MAMMO 11:23
PROVIDERS: ATTEND Family Medicine
DX: Z12.31 Encounter for screening mammogram for malignant neoplasm of breast (principal)
CPT/HCPCS: 77067